=== PATIENT | female | born 1940 | race Caucasian/White ===

== ENCOUNTER → 2018-02-26 15:31 | Outpatient (CLI) | payer MEDICARE, SELFPAY ==
[2018-02-26 16:02] LABS: Add Manual Diff / Slide Review NO; Basophils Percent Auto 1.3 % (0-2); Eosinophils Percent Auto 1.8 % (2-4); Hemoglobin 13.5 g/dL (12.0-16.0); Mean Corpuscular HGB Conc 33.8 % (30-36); Mean Corpuscular Hemoglobin 30.2 PG (26-34); Mean Corpuscular Volume 89.4 fL (80-100); Monocytes Percent Auto 8.2 % (3-14); Neutrophils Absolute Auto 5100 /uL (3000-5900); Neutrophils Percent Auto 63.7 % (50-75); Platelet Count 200 X10^3/uL (150-400); Red Blood Cell Count 4.48 X10^6/uL (4.0-5.2); Red Cell Distribution Width 15.2 % (11.6-14.8); White Blood Cell Count 7.9 X10^3/uL (4.5-11.0)
[2018-02-26 16:19] LABS: Alanine Aminotransferase 17 IU/L (9-52); Albumin 4.2 g/dL (3.5-5.0); Albumin Globulin Ratio 1.4 (1.0-2.8); Alkaline Phosphatase 49 U/L (38-126); Aspartate Aminotransferase 19 IU/L (14-36); Bilirubin Total 0.5 mg/dL (0.2-1.3); Blood Urea Nitrogen 13 mg/dL (7-17); Calcium 9.4 mg/dL (8.4-10.2); Carbon Dioxide 29 mmol/L (22-32); Chloride 107 mmol/L (98-107); Estimated Glomerular Filt Rate 54.1 mL/min (>60); Glucose 78 mg/dL (80-110); HEMOLYSIS < 15 (0-50); Potassium 4.4 mmol/L (3.4-5.1); Sodium 146 mmol/L (137-145); Total Protein 7.2 g/dL (6.3-8.2)
== END ==
PROVIDERS: PCP Family Medicine; Visit Provider Nurse Practitioner Gerontology
DX: C50.912 Malignant neoplasm of unspecified site of left female breast (principal)
CPT/HCPCS: 36415; 80053; 85025

== ENCOUNTER → 2018-09-11 15:11 | Outpatient (CLI) | payer MEDICARE, SELFPAY | PROVIDERS: PCP Family Medicine; Visit Provider Family Medicine | DX: Z78.0 Asymptomatic menopausal state (principal); Z85.3 Personal history of malignant neoplasm of breast; Z82.62 Family history of osteoporosis; Z87.891 Personal history of nicotine dependence | CPT/HCPCS: 77080 ==

== ENCOUNTER → 2018-09-23 15:40 | Oncology outpatient (ONC) | payer MEDICARE, SELFPAY ==
--- NOTE | 2018-01-17 12:17 | PC.NURSE ---
Pt called for refill of her Tamoxifen 20mg PO QD. [facility] pharm [facility]. [employer] notified
[2018-02-28 13:33] VITALS: BP 127/66; PULSE 82; RESP 16; TEMP 37; O2SAT 96
--- NOTE | 2018-02-28 13:38 | ONC.PN ---
PN -Subjective Interval history: Chief Complaint 77-year-old female left breast ER positive MA positive HER2 negative cancer. 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 Her primary cancer measured 0.6 cm in greatest diameter. ER pos, MA pos, HER2 neg and Ki-67 8.45%. Patient was in [facility]. Per patient's recall that because it was an early stage and small size of her cancer, radiation and chemotherapy were not recommended. And since it October 10, 2015, patient has been on tamoxifen 20 mg once a day. Patient has tolerated the tamoxifen exceedingly well. Patient is aware the potential side effects of tamoxifen including endometrial carcinoma as well as the increased risk of blood clot. Patient presents here today for continued follow-up. Patient said that she always get a mammogram in June at [facility]. And the most recent mammogram was completely normal. - Patient Self-Reported Symptoms SR Constitution: Weight loss/gain (Patient reported weight gain.) SR Gastrointestinal issues: Poor or no appetite SR Neuro issues: Numbness or tingling, Difficulty balancing - Additional ROS All systems PM: reviewed and no additional remarkable complaints except as stated Home Medications and Allergies Home Medications Medication Instructions Recorded Confirmed Type multivitamin [Multiple Vitamins] 1 PO QDAY #0 09/07/16 History lorazepam 0.5 mg PO Q6HP PRN #60 tab 09/21/16 Rx naproxen sodium [Aleve] 220 mg PO PRN #0 10/24/16 History carvedilol 3.125 mg PO BID 02/28/18 02/28/18 History escitalopram oxalate 20 mg PO DAILY 02/28/18 02/28/18 History gabapentin 600 mg PO TID 02/28/18 02/28/18 History omeprazole magnesium [Prilosec OTC] 20 mg PO DAILY 02/28/18 02/28/18 History pravastatin 40 mg PO DAILY 02/28/18 02/28/18 History tamoxifen 20 mg PO DAILY 02/28/18 02/28/18 History Allergies Allergy/AdvReac Type Severity Reaction Status Date / Time No Known Allergies Allergy Uncoded 09/12/17 12:36 Exam Vital signs: Last Vital Signs Temp 98.6 F 02/28/18 13:33 Pulse 82 02/28/18 13:33 Resp 16 02/28/18 13:33 BP 127/66 02/28/18 13:33 Pulse Ox 96 02/28/18 13:33 Narrative: ECOG 1 General: Well-developed well-nourished not in any acute respiratory distress pleasant and cooperative. HEENT: Normocephalic atraumatic, extraocular muscle movement intact. Pupils are round equal and reactive to light and accommodations. Anicteric sclera. Neck: Supple, no palpable thyromegaly and no palpable lymph nodes. Respiratory: Clear to auscultation soft, no wheezes. Cardiovascular regular rate and rhythm, S1-S2 normal, no murmurs gallops or rubs. Abdomen: Soft nontender, bowel sounds normal, no palpable organomegaly. Lower extremities: No palpable pedal edema. Neurological exam: Patient is awake and alert and oriented x3, nonfocal on my examination Breast Exam: deferred. Assessment and Plan (1) Breast cancer I explained to the patient that for postmenopausal woman in addition to tamoxifen, there is another option which is aromatase inhibitor. However patient said that since she has been taking tamoxifen for such a long time and she is aware of the potential side effects including endometrial carcinoma as well as the blood clot, she would not like to change to aromatase inhibitor in fear of on anticipated side effects. I talked with her and I agree with and support her decision regarding continued use of tamoxifen as long as she is aware of the potential risks associated with use of the tamoxifen. Patient is not on aspirin. I recommend that she start taking aspirin 81 mg once a day on a daily basis. It may help prevent thromboembolism. Patient voiced understanding. I will schedule the patient to come back to see me in 6 months.
--- NOTE | 2018-02-28 13:43 | P.PNONC_ITS ---
PN -Subjective Interval history: Chief Complaint 77-year-old female left breast ER positive ID positive HER2 negative cancer. 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 Her primary cancer measured 0.6 cm in greatest diameter. ER pos, ID pos, HER2 neg and Ki-67 8.45%. Patient was in [facility]. Per patient's recall that because it was an early stage and small size of her cancer, radiation and chemotherapy were not recommended. And since it October 10, 2015, patient has been on tamoxifen 20 mg once a day. Patient has tolerated the tamoxifen exceedingly well. Patient is aware the potential side effects of tamoxifen including endometrial carcinoma as well as the increased risk of blood clot. Patient presents here today for continued follow-up. Patient said that she always get a mammogram in June at [place]. And the most recent mammogram was completely normal. - Patient Self-Reported Symptoms SR Constitution: Weight loss/gain (Patient reported weight gain.) SR Gastrointestinal issues: Poor or no appetite SR Neuro issues: Numbness or tingling, Difficulty balancing - Additional ROS All systems PM: reviewed and no additional remarkable complaints except as stated Home Medications and Allergies Home Medications Medication Instructions Recorded Confirmed Type multivitamin [Multiple Vitamins] 1 PO QDAY #0 09/07/16 History lorazepam 0.5 mg PO Q6HP PRN #60 tab 09/21/16 Rx naproxen sodium [Aleve] 220 mg PO PRN #0 10/24/16 History carvedilol 3.125 mg PO BID 02/28/18 02/28/18 History escitalopram oxalate 20 mg PO DAILY 02/28/18 02/28/18 History gabapentin 600 mg PO TID 02/28/18 02/28/18 History omeprazole magnesium [Prilosec OTC] 20 mg PO DAILY 02/28/18 02/28/18 History pravastatin 40 mg PO DAILY 02/28/18 02/28/18 History tamoxifen 20 mg PO DAILY 02/28/18 02/28/18 History Allergies Allergy/AdvReac Type Severity Reaction Status Date / Time No Known Allergies Allergy Uncoded 09/12/17 12:36 Exam Vital signs: Last Vital Signs Temp 98.6 F 02/28/18 13:33 Pulse 82 02/28/18 13:33 Resp 16 02/28/18 13:33 BP 127/66 02/28/18 13:33 Pulse Ox 96 02/28/18 13:33 Narrative: ECOG 1 General: Well-developed well-nourished not in any acute respiratory distress pleasant and cooperative. HEENT: Normocephalic atraumatic, extraocular muscle movement intact. Pupils are round equal and reactive to light and accommodations. Anicteric sclera. Neck: Supple, no palpable thyromegaly and no palpable lymph nodes. Respiratory: Clear to auscultation soft, no wheezes. Cardiovascular regular rate and rhythm, S1-S2 normal, no murmurs gallops or rubs. Abdomen: Soft nontender, bowel sounds normal, no palpable organomegaly. Lower extremities: No palpable pedal edema. Neurological exam: Patient is awake and alert and oriented x3, nonfocal on my examination Breast Exam: deferred. Assessment and Plan (1) Breast cancer I explained to the patient that for postmenopausal woman in addition to tamoxifen, there is another option which is aromatase inhibitor. However patient said that since she has been taking tamoxifen for such a long time and she is aware of the potential side effects including endometrial carcinoma as well as the blood clot, she would not like to change to aromatase inhibitor in fear of on anticipated side effects. I talked with her and I agree with and support her decision regarding continued use of tamoxifen as long as she is aware of the potential risks associated with use of the tamoxifen. Patient is not on aspirin. I recommend that she start taking aspirin 81 mg once a day on a daily basis. It may help prevent thromboembolism. Patient voiced understanding. I will schedule the patient to come back to see me in 6 months.
--- NOTE | 2018-04-08 10:09 | PC.NURSE ---
Tamoxifen refill called into [facility] in [place] for 20 mg po daily #90 tabs. Phone number [phone].
--- NOTE | 2018-07-22 13:31 | PC.NURSE ---
Authorized refill on pts Tamoxifen w/ refill. Called to [facility] in [place], [place]. Provider visit in September
[2018-09-17 15:12] LABS: Add Manual Diff / Slide Review NO; Basophils Absolute Auto 100 /uL (0-100); Basophils Percent Auto 0.9 % (0-2); Eosinophils Absolute Auto 100 /uL (0-450); Eosinophils Percent Auto 1.1 % (2-4); Hematocrit 44.1 % (36-46); Lymphocytes Absolute Auto 1800 /uL (1100-4500); Lymphocytes Percent Auto 20.5 % (25-40); Mean Corpuscular HGB Conc 31.8 % (30-36); Mean Corpuscular Hemoglobin 28.4 PG (26-34); Mean Corpuscular Volume 89.2 fL (80-100); Monocytes Absolute Auto 600 /uL (0-900); Monocytes Percent Auto 6.6 % (3-14); Neutrophils Absolute Auto 6100 /uL (1500-7000); Neutrophils Percent Auto 70.9 % (50-75); Platelet Count 226 X10^3/uL (150-400); Red Blood Cell Count 4.94 X10^6/uL (4.0-5.2); Red Cell Distribution Width 15.9 % (11.6-14.8); White Blood Cell Count 8.6 X10^3/uL (4.5-11.0)
[2018-09-17 15:38] LABS: Alanine Aminotransferase 19 IU/L (9-52); Albumin 4.3 g/dL (3.5-5.0); Albumin Globulin Ratio 1.4 (1.0-2.8); Alkaline Phosphatase 57 U/L (38-126); Aspartate Aminotransferase 19 IU/L (14-36); BUN Creatinine Ratio 16.4 (6-22); Bilirubin Total 0.5 mg/dL (0.2-1.3); Blood Urea Nitrogen 18 mg/dL (7-17); Carbon Dioxide 27 mmol/L (22-32); Chloride 102 mmol/L (98-107); Estimated Glomerular Filt Rate 48.4 mL/min (>60); Glucose 102 mg/dL (80-110); HEMOLYSIS < 15 (0-50); Potassium 4.6 mmol/L (3.4-5.1); Sodium 140 mmol/L (137-145); Total Protein 7.3 g/dL (6.3-8.2)
--- NOTE | 2018-09-23 16:46 | ONC.PN ---
PN -Subjective Interval history: Tia is a 77-year-old female left breast ER positive NJ positive HER2 negative cancer. She is here for scheduled follow up visit. Clinically, patient has been doing well. Patient reported that occasionally she noticed lower back pain. However patient said that when she moves around, the pain gets better. Patient also underwent and bone density scan recently and per patient it was normal. Oncological History: She was diagnosed with left-sided stage I (T1 N0) invasive ductal carcinoma and underwent partial mastectomy with sentinel lymph node dissection on 08/23/2015. Her primary cancer measured 0.6 cm in greatest diameter, and was ER pos, NJ pos, HER2 neg and Ki-67 8.45%. Patient was in [facility] at the time, and per patient's recall, due to early stage and small size of her cancer, radiation and chemotherapy were not recommended. Starting from 10/10/2015, the patient has been on tamoxifen 20 mg once a day. Patient has tolerated the tamoxifen exceedingly well. Patient is aware the potential side effects of tamoxifen including endometrial carcinoma as well as the increased risk of blood clot. Patient had a mammogram in June at [place], and was normal. - Patient Self-Reported Symptoms SR Constitution: Weight loss/gain (Patient reported weight gain.) SR Gastrointestinal issues: Poor or no appetite SR Neuro issues: Numbness or tingling, Difficulty balancing - Additional ROS All systems PM: reviewed and no additional remarkable complaints except as stated Home Medications and Allergies Home Medications Medication Instructions Recorded Confirmed Type multivitamin [Multiple Vitamins] 1 PO QDAY #0 09/07/16 History naproxen sodium [Aleve] 220 mg PO PRN #0 10/24/16 History carvedilol 3.125 mg PO BID 02/28/18 02/28/18 History escitalopram oxalate 20 mg PO DAILY 02/28/18 02/28/18 History gabapentin 600 mg PO TID 02/28/18 02/28/18 History omeprazole magnesium [Prilosec OTC] 20 mg PO DAILY 02/28/18 02/28/18 History pravastatin 40 mg PO DAILY 02/28/18 02/28/18 History aspirin 81 mg PO DAILY 09/23/18 09/23/18 History lorazepam 0.5 mg PO Q6HP PRN #60 tab 09/23/18 Rx tamoxifen 20 mg PO DAILY #90 tab 09/23/18 Rx Allergies Allergy/AdvReac Type Severity Reaction Status Date / Time No Known Allergies Allergy Uncoded 09/12/17 12:36 Exam Vital signs: Last Vital Signs Temp 97.2 F L 09/23/18 16:48 Pulse 63 09/23/18 16:48 Resp 18 09/23/18 16:48 BP 136/65 09/23/18 16:48 Pulse Ox 99 09/23/18 16:48 Narrative: ECOG 1 General: WDWN, NAD, pleasant and cooperative. HEENT: NCAT, EOMI, PERLLA, anicteric. Neck: Supple, no palpable thyromegaly and no palpable lymph nodes. Respiratory: Clear to auscultation soft, no wheezes. Cardiovascular: RRR, S1/S2 normal, no murmurs gallops or rubs. Abdomen: Soft nontender, bowel sounds normal, no palpable organomegaly. Lower extremities: No palpable pedal edema. Neurological: AOx3, nonfocal on my examination Breast Exam: deferred. Results - Labs Laboratory Last Values WBC 8.6 X10^3/uL (4.5-11.0) 09/17/18 13:57 RBC 4.94 X10^6/uL (4.0-5.2) 09/17/18 13:57 Hgb 14.0 g/dL (12.0-16.0) 09/17/18 13:57 Hct 44.1 % (36-46) 09/17/18 13:57 MCV 89.2 fL (80-100) 09/17/18 13:57 MCH 28.4 PG (26-34) 09/17/18 13:57 MCHC 31.8 % (30-36) 09/17/18 13:57 RDW 15.9 % (11.6-14.8) H 09/17/18 13:57 Plt Count 226 X10^3/uL (150-400) 09/17/18 13:57 Neut % (Auto) 70.9 % (50-75) 09/17/18 13:57 Lymph % (Auto) 20.5 % (25-40) L 09/17/18 13:57 Teller % (Auto) 6.6 % (3-14) 09/17/18 13:57 Eos % (Auto) 1.1 % (2-4) L 09/17/18 13:57 Baso % (Auto) 0.9 % (0-2) 09/17/18 13:57 Neut # (Auto) 6100 /uL (6741-5804) 09/17/18 13:57 Lymph # (Auto) 1800 /uL (5122-8782) 09/17/18 13:57 Teller # (Auto) 600 /uL (0-900) 09/17/18 13:57 Eos # (Auto) 100 /uL (0-450) 09/17/18 13:57 Baso # (Auto) 100 /uL (0-100) 09/17/18 13:57 Sodium 140 mmol/L (137-145) 09/17/18 13:57 Potassium 4.6 mmol/L (3.4-5.1) 09/17/18 13:57 Chloride 102 mmol/L (98-107) 09/17/18 13:57 Carbon Dioxide 27 mmol/L (22-32) 09/17/18 13:57 BUN 18 mg/dL (7-17) H 09/17/18 13:57 Creatinine 1.10 mg/dL (0.52-1.04) H 09/17/18 13:57 Estimated GFR 48.4 mL/min (>60) L 09/17/18 13:57 BUN/Creatinine Ratio 16.4 (6-22) 09/17/18 13:57 Glucose 102 mg/dL (80-110) 09/17/18 13:57 Calcium 10.0 mg/dL (8.4-10.2) 09/17/18 13:57 Total Bilirubin 0.5 mg/dL (0.2-1.3) 09/17/18 13:57 AST 19 IU/L (14-36) 09/17/18 13:57 ALT 19 IU/L (9-52) 09/17/18 13:57 Alkaline Phosphatase 57 U/L (38-126) 09/17/18 13:57 Total Protein 7.3 g/dL (6.3-8.2) 09/17/18 13:57 Albumin 4.3 g/dL (3.5-5.0) 09/17/18 13:57 Globulin 3.0 g/dL (1.7-4.1) 09/17/18 13:57 Albumin/Globulin Ratio 1.4 (1.0-2.8) 09/17/18 13:57 Assessment and Plan (1) Breast cancer Assessment: Tia was diagnosed with left-sided stage I (T1 N0) invasive ductal carcinoma and underwent partial mastectomy with sentinel lymph node dissection on 08/23/2015. Her primary cancer measured 0.6 cm in greatest diameter, and was ER pos, NJ pos, HER2 neg and Ki-67 8.45%. Patient was in [facility] at the time, and per patient's recall, due to early stage and small size of her cancer, radiation and chemotherapy were not recommended. Starting from 10/10/2015, the patient has been on tamoxifen 20 mg once a day. Plan: 1. Continue Tamoxifen 20 mg daily 2. Continue ASA 81 mg daily 3. RTC in 6 months for follow up visit, CBC, CMP
[2018-09-23 16:48] VITALS: BP 136/65; PULSE 63; RESP 18; TEMP 36.2; O2SAT 99
--- NOTE | 2018-09-23 16:54 | P.PNONC_ITS ---
PN -Subjective Interval history: Tia is a 77-year-old female left breast ER positive ND positive HER2 negative cancer. She is here for scheduled follow up visit. Clinically, patient has been doing well. Patient reported that occasionally she noticed lower back pain. However patient said that when she moves around, the pain gets better. Pat ient also underwent and bone density scan recently and per patient it was normal. Oncological History: She was diagnosed with left-sided stage I (T1 N0) invasive ductal carcinoma and underwent partial mastectomy with sentinel lymph node dissection on 08/23/2015. Her primary cancer measured 0.6 cm in greatest diameter, and was ER pos, ND pos, HER2 neg and Ki-67 8.45%. Patient was in [facility] at the time, and per patient's recall, due to early stage and small size of her cancer, radiation and chemotherapy were not recommended. Starting from 10/10/2015, the patient has been on tamoxifen 20 mg once a day. Patient has tolerated the tamoxifen exceedingly well. Patient is aware the potential side effects of tamoxifen including endometrial carcinoma as well as the increased risk of blood clot. Patient had a mammogram in June at [place], and was normal. - Patient Self-Reported Symptoms SR Constitution: Weight loss/gain (Patient reported weight gain.) SR Gastrointestinal issues: Poor or no appetite SR Neuro issues: Numbness or tingling, Difficulty balancing - Additional ROS All systems PM: reviewed and no additional remarkable complaints except as stated Home Medications and Allergies Home Medications Medication Instructions Recorded Confirmed Type multivitamin [Multiple Vitamins] 1 PO QDAY #0 09/07/16 History naproxen sodium [Aleve] 220 mg PO PRN #0 10/24/16 History carvedilol 3.125 mg PO BID 02/28/18 02/28/18 History escitalopram oxalate 20 mg PO DAILY 02/28/18 02/28/18 History gabapentin 600 mg PO TID 02/28/18 02/28/18 History omeprazole magnesium [Prilosec OTC] 20 mg PO DAILY 02/28/18 02/28/18 History pravastatin 40 mg PO DAILY 02/28/18 02/28/18 History aspirin 81 mg PO DAILY 09/23/18 09/23/18 History lorazepam 0.5 mg PO Q6HP PRN #60 tab 09/23/18 Rx tamoxifen 20 mg PO DAILY #90 tab 09/23/18 Rx Allergies Allergy/AdvReac Type Severity Reaction Status Date / Time No Known Allergies Allergy Uncoded 09/12/17 12:36 Exam Vital signs: Last Vital Signs Temp 97.2 F L 09/23/18 16:48 Pulse 63 09/23/18 16:48 Resp 18 09/23/18 16:48 BP 136/65 09/23/18 16:48 Pulse Ox 99 09/23/18 16:48 Narrative: ECOG 1 General: WDWN, NAD, pleasant and cooperative. HEENT: NCAT, EOMI, PERLLA, anicteric. Neck: Supple, no palpable thyromegaly and no palpable lymph nodes. Respiratory: Clear to auscultation soft, no wheezes. Cardiovascular: RRR, S1/S2 normal, no murmurs gallops or rubs. Abdomen: Soft nontender, bowel sounds normal, no palpable organomegaly. Lower extremities: No palpable pedal edema. Neurological: AOx3, nonfocal on my examination Breast Exam: deferred. Results - Labs Laboratory Last Values WBC 8.6 X10^3/uL (4.5-11.0) 09/17/18 13:57 RBC 4.94 X10^6/uL (4.0-5.2) 09/17/18 13:57 Hgb 14.0 g/dL (12.0-16.0) 09/17/18 13:57 Hct 44.1 % (36-46) 09/17/18 13:57 MCV 89.2 fL (80-100) 09/17/18 13:57 MCH 28.4 PG (26-34) 09/17/18 13:57 MCHC 31.8 % (30-36) 09/17/18 13:57 RDW 15.9 % (11.6-14.8) H 09/17/18 13:57 Plt Count 226 X10^3/uL (150-400) 09/17/18 13:57 Neut % (Auto) 70.9 % (50-75) 09/17/18 13:57 Lymph % (Auto) 20.5 % (25-40) L 09/17/18 13:57 Mcintosh % (Auto) 6.6 % (3-14) 09/17/18 13:57 Eos % (Auto) 1.1 % (2-4) L 09/17/18 13:57 Baso % (Auto) 0.9 % (0-2) 09/17/18 13:57 Neut # (Auto) 6100 /uL (6525-2737) 09/17/18 13:57 Lymph # (Auto) 1800 /uL (9674-3708) 09/17/18 13:57 Mcintosh # (Auto) 600 /uL (0-900) 09/17/18 13:57 Eos # (Auto) 100 /uL (0-450) 09/17/18 13:57 Baso # (Auto) 100 /uL (0-100) 09/17/18 13:57 Sodium 140 mmol/L (137-145) 09/17/18 13:57 Potassium 4.6 mmol/L (3.4-5.1) 09/17/18 13:57 Chloride 102 mmol/L (98-107) 09/17/18 13:57 Carbon Dioxide 27 mmol/L (22-32) 09/17/18 13:57 BUN 18 mg/dL (7-17) H 09/17/18 13:57 Creatinine 1.10 mg/dL (0.52-1.04) H 09/17/18 13:57 Estimated GFR 48.4 mL/min (>60) L 09/17/18 13:57 BUN/Creatinine Ratio 16.4 (6-22) 09/17/18 13:57 Glucose 102 mg/dL (80-110) 09/17/18 13:57 Calcium 10.0 mg/dL (8.4-10.2) 09/17/18 13:57 Total Bilirubin 0.5 mg/dL (0.2-1.3) 09/17/18 13:57 AST 19 IU/L (14-36) 09/17/18 13:57 ALT 19 IU/L (9-52) 09/17/18 13:57 Alkaline Phosphatase 57 U/L (38-126) 09/17/18 13:57 Total Protein 7.3 g/dL (6.3-8.2) 09/17/18 13:57 Albumin 4.3 g/dL (3.5-5.0) 09/17/18 13:57 Globulin 3.0 g/dL (1.7-4.1) 09/17/18 13:57 Albumin/Globulin Ratio 1.4 (1.0-2.8) 09/17/18 13:57 Assessment and Plan (1) Breast cancer Assessment: Tia was diagnosed with left-sided stage I (T1 N0) invasive d uctal carcinoma and underwent partial mastectomy with sentinel lymph node dissection on 08/23/2015. Her primary cancer measured 0.6 cm in greatest diameter, and was ER pos, ND pos, HER2 neg and Ki-67 8.45%. Patient was in [facility] at the time, and per patient's recall, due to early stage and small size of her cancer, radiation and chemotherapy were not recommended. Starting from 10/10/2015, the patient has been on tamoxifen 20 mg once a day. Plan: 1. Continue Tamoxifen 20 mg daily 2. Continue ASA 81 mg daily 3. RTC in 6 months for follow up visit, CBC, CMP
== END ==
PROVIDERS: Family Provider Family Medicine; PCP Family Medicine; Visit Provider Internal Medicine Hematology & Oncology
DX: C50.912 Malignant neoplasm of unspecified site of left female breast (principal); Z17.0 Estrogen receptor positive status [ER+]; Z79.810 Long term (current) use of selective estrogen receptor modulators (SERMs)
CPT/HCPCS: 36415; 80053; 85025; 99214; 99215

== ENCOUNTER → 2018-12-25 14:10 | Outpatient (CLI) | payer MEDICARE, SELFPAY ==
--- NOTE | 2018-12-25 14:27 | DI.RAD.S_ITS ---
PROCEDURE: XR CHEST 2V INDICATIONS: Bronchospasm TECHNIQUE: 2 views of the chest were acquired. COMPARISON: None. FINDINGS: Surgical changes and devices: Right humerus plate and screw fixation. Lungs and pleura: Prominent pulmonary vasculature most evident in the right hilar region. Mild hazy opacity in the right lung. Small right pleural effusion. No significant left pleural effusion. No pneumothorax. Mediastinum: Mediastinal contours are within normal limits. Heart size is normal. Bones and chest wall: No suspicious bony abnormalities. There is diffuse osteopenia. Soft tissues appear unremarkable. IMPRESSION: 1. Prominent pulmonary vasculature and hazy opacity in the right lung. This may be due to pulmonary edema. 2. Small right pleural effusion. Dictated by: Palomo Fox M.D. on 12/25/2018 at 16:50 Approved by: Palomo Fox M.D. on 12/25/2018 at 16:53
== END ==
PROVIDERS: Visit Provider Physician Assistant
DX: J98.01 Acute bronchospasm (principal); R05 Cough; J40 Bronchitis, not specified as acute or chronic; J90 Pleural effusion, not elsewhere classified
CPT/HCPCS: 71046

== ENCOUNTER 2019-01-01 13:23 | Inpatient (IN) | payer MEDICARE, SELFPAY ==
[2019-01-01] VITALS (10 sets, daily range): BP systolic 131–157; BP diastolic 67–75; PULSE 81–110; RESP 17–21; TEMP 36.6–37.2; O2SAT 86–97; BMI 26.5
--- NOTE | 2019-01-01 13:32 | ED.SOB ---
HPI - SOB/Dyspnea General Chief Complaint: Shortness of Breath/Dyspnea Stated Complaint: LBB Time Seen by Provider: 01/01/19 13:31 Source: patient and EMS Mode of arrival: EMS Limitations: no limitations History of Present Illness This is a 78-year-old female comes to the emergency department. She initially contacted EMS for a back pain and spasm. Patient states she has had back pain for several weeks. She states that it has been exacerbated by coughing. She thought that maybe it started after seeing a chiropractor. EMS noted that her oxygenation was in the low 90s when she was on room air they also noted that she was tachycardic. And that she had a left bundle branch block on her EKG. It is unclear if this is new or old. Patient denies any fevers. She states she has had a cough for several weeks. She has been steroids as well as inhalers and told she has bronchitis. Patient denies any tobacco use. She states she does feel short of breath. She denies any chest pressure or pain recently. She states that she has not had any other GI or new urinary symptoms other than incontinence when she coughs. No new weakness or numbness in her extremities. Patient saw her primary care/walk-in clinic who placed her on these medications. She also takes medication for blood pressure as well as dyslipidemia. She is on tamoxifen for breast cancer and was cleared in 2014. States she had a lumpectomy, denies any other surgeries at this time. Denies any allergies to medications. Denies any tobacco use since 1979. States that she used to drink heavily and quit about 6 years ago, denies any illicit or marijuana. Related Data Home Medications Medication Instructions Recorded Confirmed albuterol sulfate [ProAir HFA] 2 puff INHALATION Q4H PRN 01/01/19 01/01/19 aspirin 81 mg PO DAILY 01/01/19 01/01/19 azithromycin 250 mg PO DAILY 01/01/19 01/01/19 benzonatate 100 mg PO BID PRN 01/01/19 01/01/19 carvedilol 3.125 mg PO BID 01/01/19 01/01/19 escitalopram oxalate 20 mg PO DAILY 01/01/19 01/01/19 gabapentin 600 mg PO TID 01/01/19 01/01/19 hydrocodone-acetaminophen 1 tab PO Q4-6H PRN 01/01/19 01/01/19 multivitamin with minerals 1 tab PO DAILY 01/01/19 01/01/19 naproxen 500 mg PO BID 01/01/19 01/01/19 naproxen sodium [Aleve] 220 - 440 mg PO DAILY PRN 01/01/19 01/01/19 omeprazole magnesium [Prilosec OTC] 20 mg PO DAILY 01/01/19 01/01/19 pravastatin 40 mg PO BEDTIME 01/01/19 01/01/19 tamoxifen 20 mg PO DAILY 01/01/19 01/01/19 Allergies Allergy/AdvReac Type Severity Reaction Status Date / Time No Known Drug Allergies Allergy Verified 01/01/19 13:52 Review of Systems Review of Systems ROS Unobtainable: All systems reviewed & are unremarkable except as noted in HPI and below Constitutional Denies chills, Denies excessive sweating, Denies fever(s), Denies lethargy and Denies weakness Cardiovascular Denies chest pain, Denies diaphoresis, Denies syncope, Denies edema, Denies irregular heart rhythm, Denies lightheadedness, Denies palpitations, Reports dyspnea, Reports dyspnea on exertion and Denies orthopnea Respiratory Reports change in phlegm color (Phlegm improved), Reports chest congestion, Reports cough, Denies hemoptysis, Denies excessive phlegm production, Denies pain on inspiration, Reports pain with cough (Pain is in lower back), Reports dyspnea, Reports dyspnea on exertion, Denies stridor and Reports wheezing Gastrointestinal Gastrointestinal: Denies abdominal pain, Denies change in bowel habits, Denies diarrhea, Denies nausea and Denies vomiting Genitourinary Denies hematuria, Denies urinary frequency, Denies dysuria, Denies flank pain, Reports urinary incontinence (With cough) and Denies urinary urgency Musculoskeletal Reports back pain, Denies muscle weakness and Denies numbness Neurologic Denies syncope, Denies numbness and Denies weakness Endocrine Denies excessive sweating and Denies palpitations Allergic/Immunologic Reports wheezing [facility] Medical History (Updated 01/01/19 @ 17:14 by Lita Heart DO) Dyslipidemia (Acute) Breast cancer (Chronic) Hypertension (Chronic) Surgical History (Updated 01/01/19 @ 13:36 by Lita Heart DO) H/O lumpectomy (Chronic) Social History (Updated 01/01/19 @ 13:37 by Lita Heart DO) Smoking Status: Former smoker alcohol intake: former substance use type: does not use Social History (Updated 01/01/19 @ 13:37 by Lita Heart DO) Smoking Status: Former smoker alcohol intake: former substance use type: does not use Exam Narrative Exam Narrative: GENERAL: Alert and oriented x three, elderly appearing female in mild distress. Patient O2 drops to 89% while off O2 and being transferred on the bed. HEENT: Head normocephalic, atraumatic, EOMI, pupils reactive, face symmetric, moist mucous membranes NECK: Supple, full range of motion CARDIOVASCULAR: Regular rate and rhythm without murmurs, rubs or gallops. RESPIRATORY: Breath sounds equal bilaterally, no wheezes, no rhonchi. Patient has some slight crackles bilaterally. No tachypnea or accessory muscle use. Patient speaks in full sentences. ABDOMEN: Soft, nontender. Normoactive bowel sounds all 4 quadrants. No guarding or rebound, rigidity, no mass : No CVA tenderness BACK: No cervical, thoracic or lumbar vertebral point tenderness. Patient has decreased range of motion with flexion/extension of back. Rectal exam is deferred. Muscle strength is 5/5 in lower extremities. Dorsalis pedis and tibialis pulses are 2+ and lower extremities. Sensation is intact in the lower extremities. EXTREMITIES: Normal range of motion, no clubbing or edema. Neurovascularly intact NEUROLOGICAL: Cranial nerves II through XII grossly intact. Moving all extremities SKIN: Warm, dry, no petechiae, no rashes or lesions. Initial Vital Signs Initial Vital Signs: Vital Signs Pulse Rate 103 H 01/01/19 13:30 Blood Pressure 131/75 01/01/19 13:30 Pulse Oximetry 96 01/01/19 13:30 Course Orders Ordered: ED Orders 01/01/19 13:03 B Type Natriuretic Peptide Stat Complete Blood Count AUTO DIFF Stat Comprehensive Metabolic Panel Stat Magnesium Stat Procalcitonin Stat Troponin & CK Cardiac Panel Stat 01/01/19 13:22 EKG-12 Lead Routine 01/01/19 13:31 Consult to Respiratory Therapy Evaluate & Treat 01/01/19 13:32 XR chest 1V Stat 01/01/19 13:48 Blood Culture Stat D Dimer Stat Lactate (Lactic Acid) Stat Partial Thromboplastin Time Stat Prothrombin Time INR Stat 01/01/19 14:19 CT angio chest PE protocol Stat Discontinued Medications Methylprednisolone (Solu-Medrol 125 Mg Vial) 125 mg IV NOW ONE Stop: 01/01/19 13:32 Last Admin: 01/01/19 13:56 Dose: 125 mg Morphine Sulfate (Morphine) 4 mg IV NOW ONE Stop: 01/01/19 13:32 Last Admin: 01/01/19 13:55 Dose: 4 mg Vital Signs - 8 hr 01/01/19 13:30 01/01/19 13:31 01/01/19 15:27 Temperature 98.9 F Pulse Rate 103 H 110 H Respiratory Rate 21 Blood Pressure 137/74 Blood Pressure [Right Arm] 131/75 Pulse Oximetry 96 89 L 86 L 01/01/19 15:28 01/01/19 15:30 01/01/19 16:30 Temperature Pulse Rate 89 90 Respiratory Rate Blood Pressure Blood Pressure [Right Arm] 143/71 H 157/75 H Pulse Oximetry 94 95 96 MDM - SOB/Dyspnea Lab Data Attestation: I reviewed the patient's lab results. Result diagrams: 01/01/19 13:03 01/01/19 13:03 Lab Results 01/01/19 01/01/19 01/01/19 Range/Units 13:03 13:03 13:03 WBC 18.3 H (4.5-11.0) X10^3/uL RBC 4.62 (4.0-5.2) X10^6/uL Hgb 13.5 (12.0-16.0) g/dL Hct 41.5 (36-46) % MCV 89.8 (80-100) fL MCH 29.1 (26-34) PG MCHC 32.4 (30-36) % RDW 17.0 H (11.6-14.8) % Plt Count 119 L (150-400) X10^3/uL Neut % (Auto) 83.0 H (50-75) % Lymph % (Auto) 10.1 L (25-40) % Door % (Auto) 5.4 (3-14) % Eos % (Auto) 0.6 L (2-4) % Baso % (Auto) 0.9 (0-2) % Neut # (Auto) 01233 H (5926-7008) /uL Lymph # (Auto) 1800 (2388-2098) /uL Door # (Auto) 1000 H (0-900) /uL Eos # (Auto) 100 (0-450) /uL Baso # (Auto) 200 H (0-100) /uL PT (10.1-12.7) SECONDS INR (0.9-1.3) APTT (26.4-36.2) SECONDS D-Dimer (<230) ng/mL Sodium (137-145) mmol/L Potassium (3.4-5.1) mmol/L Chloride (98-107) mmol/L Carbon Dioxide (22-32) mmol/L BUN (7-17) mg/dL Creatinine (0.52-1.04) mg/dL Estimated GFR (>60) mL/min BUN/Creatinine Ratio (6-22) Glucose (80-110) mg/dL Lactate (0.7-2.1) mmol/L Calcium (8.4-10.2) mg/dL Magnesium 1.9 (1.6-2.3) mg/dL Total Bilirubin (0.2-1.3) mg/dL AST (14-36) IU/L ALT (9-52) IU/L Alkaline Phosphatase (38-126) U/L Total Creatine Kinase 28 L (30-135) U/L CK-MB (CK-2) TNP CK-MB (CK-2) Rel Index TNP Troponin I 0.019 (0.01-0.034) ng/mL B-Natriuretic Peptide < 100 (<100) Total Protein (6.3-8.2) g/dL Albumin (3.5-5.0) g/dL Globulin (1.7-4.1) g/dL Albumin/Globulin Ratio (1.0-2.8) Procalcitonin 0.17 (<0.5) ng/mL 01/01/19 01/01/19 01/01/19 Range/Units 13:03 13:48 13:48 WBC (4.5-11.0) X10^3/uL RBC (4.0-5.2) X10^6/uL Hgb (12.0-16.0) g/dL Hct (36-46) % MCV (80-100) fL MCH (26-34) PG MCHC (30-36) % RDW (11.6-14.8) % Plt Count (150-400) X10^3/uL Neut % (Auto) (50-75) % Lymph % (Auto) (25-40) % Door % (Auto) (3-14) % Eos % (Auto) (2-4) % Baso % (Auto) (0-2) % Neut # (Auto) (6736-7138) /uL Lymph # (Auto) (3941-6327) /uL Door # (Auto) (0-900) /uL Eos # (Auto) (0-450) /uL Baso # (Auto) (0-100) /uL PT 13.9 H (10.1-12.7) SECONDS INR 1.2 (0.9-1.3) APTT 28 (26.4-36.2) SECONDS D-Dimer 6918 H (<230) ng/mL Sodium 138 (137-145) mmol/L Potassium 4.4 (3.4-5.1) mmol/L Chloride 97 L (98-107) mmol/L Carbon Dioxide 28 (22-32) mmol/L BUN 25 H (7-17) mg/dL Creatinine 0.90 (0.52-1.04) mg/dL Estimated GFR > 60.0 (>60) mL/min BUN/Creatinine Ratio 27.8 H (6-22) Glucose 121 H (80-110) mg/dL Lactate 1.3 (0.7-2.1) mmol/L Calcium 10.1 (8.4-10.2) mg/dL Magnesium (1.6-2.3) mg/dL Total Bilirubin 1.2 (0.2-1.3) mg/dL AST 67 H (14-36) IU/L ALT 17 (9-52) IU/L Alkaline Phosphatase 98 (38-126) U/L Total Creatine Kinase (30-135) U/L CK-MB (CK-2) CK-MB (CK-2) Rel Index Troponin I (0.01-0.034) ng/mL B-Natriuretic Peptide (<100) Total Protein 7.0 (6.3-8.2) g/dL Albumin 3.9 (3.5-5.0) g/dL Globulin 3.1 (1.7-4.1) g/dL Albumin/Globulin Ratio 1.3 (1.0-2.8) Procalcitonin (<0.5) ng/mL 01/01/19 Range/Units 14:47 WBC (4.5-11.0) X10^3/uL RBC (4.0-5.2) X10^6/uL Hgb (12.0-16.0) g/dL Hct (36-46) % MCV (80-100) fL MCH (26-34) PG MCHC (30-36) % RDW (11.6-14.8) % Plt Count (150-400) X10^3/uL Neut % (Auto) (50-75) % Lymph % (Auto) (25-40) % Door % (Auto) (3-14) % Eos % (Auto) (2-4) % Baso % (Auto) (0-2) % Neut # (Auto) (8455-5315) /uL Lymph # (Auto) (8479-0012) /uL Door # (Auto) (0-900) /uL Eos # (Auto) (0-450) /uL Baso # (Auto) (0-100) /uL PT (10.1-12.7) SECONDS INR (0.9-1.3) APTT (26.4-36.2) SECONDS D-Dimer (<230) ng/mL Sodium (137-145) mmol/L Potassium (3.4-5.1) mmol/L Chloride (98-107) mmol/L Carbon Dioxide (22-32) mmol/L BUN (7-17) mg/dL Creatinine (0.52-1.04) mg/dL Estimated GFR (>60) mL/min BUN/Creatinine Ratio (6-22) Glucose (80-110) mg/dL Lactate Cancelled (0.7-2.1) mmol/L Calcium (8.4-10.2) mg/dL Magnesium (1.6-2.3) mg/dL Total Bilirubin (0.2-1.3) mg/dL AST (14-36) IU/L ALT (9-52) IU/L Alkaline Phosphatase (38-126) U/L Total Creatine Kinase (30-135) U/L CK-MB (CK-2) CK-MB (CK-2) Rel Index Troponin I (0.01-0.034) ng/mL B-Natriuretic Peptide (<100) Total Protein (6.3-8.2) g/dL Albumin (3.5-5.0) g/dL Globulin (1.7-4.1) g/dL Albumin/Globulin Ratio (1.0-2.8) Procalcitonin (<0.5) ng/mL Imaging Data Chest x-ray: Radiologist's impression: [place] [address] XRay Report Signed Patient: Andrew CastroR#: [id number] : 3Acct:[id number] Age/Sex: 78 / FDate of Service: 01/01/19 Loc: ED Accession Number: [id number] Procedure: XR chest 1V Ordering Provider: Lita Heart D.O. PROCEDURE: XR CHEST 1V INDICATIONS: sob, several weeks, low O2 TECHNIQUE: One view of the chest was acquired. COMPARISON: None. FINDINGS: Surgical changes and devices: The patient the right diaphragm is present. There is a transient or shaped area of prominent consolidation identified within the right suprahilar region. There may be a trace right-sided pleural effusion. The aeration of the left lung is within normal limits. No pneumothorax is evident. Lungs and pleura: Lungs are clear. No pleural effusions or pneumothorax. Mediastinum: Mediastinal contours appear normal. Heart size is normal. There is aortic atherosclerosis. Bones and chest wall: No suspicious bony lesions. Overlying soft tissues appear unremarkable. IMPRESSION: Probable right upper lobe collapse. Chest CT with contrast is recommended for further evaluation. Dictated by: Jhon Ramirez M.D. on 01/01/2019 at 13:07 Approved by: Jhon Ramirez M.D. on 01/01/2019 at 13:09 CT scan - chest: Radiologist's impression: [place] [address] CT Scan Report Signed Patient: Danitza Castro#: [id number] : 3Acct:[id number] Age/Sex: 78 / FDate of Service: 01/01/19 Loc: ED Accession Number: [id number] Procedure: CT angio chest PE protocol Ordering Provider: Lita Heart D.O. PROCEDURE: CT ANGIO CHEST PE PROTOCOL INDICATIONS: right upper lobe opacification, infection vs. other TECHNIQUE: After the administration of intravenous contrast, 2 mm thick sections acquired from the pulmonary apices to the posterior costophrenic angles. 3-dimensional maximum intensity projection (MIP) coronal and sagittal reformats were then acquired through the thorax. For radiation dose reduction, the following was used: automated exposure control, adjustment of mA and/or kV according to patient size. COMPARISON: None. FINDINGS: Image quality: Excellent. Pulmonary arteries: Pulmonary arteries are normal in size, and demonstrate no intraluminal filling defects to suggest central pulmonary embolism. Lungs and pleura: There is a moderate size right pleural effusion with near complete atelectasis of right lower lobe. Atelectasis involving medial portion of right upper lobe is seen. Central and left peripheral airways are patent. Significant narrowing of distal right upper lobe apical and posterior segment bronchi are seen. Mediastinum: Heart size is mildly enlarged, with small to moderate-sized pericardial effusion measures up to 11 mm in thickness adjacent to left ventricle. Prominent soft tissue density involving mediastinum and right hilar region are seen concerning for right hilar mass and mediastinal lymphadenopathy, and measures up to 1.8 cm in short axis diameter in the subcarinal space. Thoracic aorta is normal in caliber and enhancement. Esophagus is normal in caliber, with a small hiatal hernia. Bones and chest wall: Moderate kyphosis is seen. Degenerative disc disease throughout thoracic spine is noted. No gross acute compression fracture. No definite lytic or sclerotic bony lesion. Thyroid gland is within normal limits. No axillary or supraclavicular adenopathy. Abdomen: No gross abnormality is seen in visualized portion of liver, and spleen. There is suggestion of a left adrenal nodule measures 1.6 x 2.8 cm in size. Distended gallbladder is seen, no discrete gallbladder wall abnormality. IMPRESSION: 1. No evidence of pulmonary emboli. No thoracic aortic aneurysm or dissection. 2. Collapse of right upper lobe apical and posterior segment. Moderate right-sided pleural effusion with near complete atelectasis of right lower lobe. Dependent atelectasis in posterior aspect of right middle and lower lobe is seen. Mild left basilar atelectasis. 3. Left sided airway and central airway is patent. There is suggestive of a right hilar mass with mass effect on adjacent right upper lobe bronchi. 4. Mediastinal lymphadenopathy as above. 5. Mild cardiomegaly, small to moderate pericardial effusion as above. 6. Left adrenal nodule measures 1.8 x 2.8 cm in size and may represent adrenal adenoma. Metastatic adrenal nodule cannot be excluded. Dictated by: Frantz Alba M.D. on 01/01/2019 at 15:35 Approved by: Frantz Alba M.D. on 01/01/2019 at 15:49 ECG Data Attestation: I personally reviewed and interpreted this ECG as follows: Prior ECG tracings: not available for review Interpretation: Sinus tachycardia with a rate of 103 P are of 138 QRS of 133 QTC of 443. Patient has left bundle branch block. No other ST changes appreciated. No prior EKGs available. EMS tracing appears similar. MDM Narrative Medical decision making narrative: In with complaint of back pain but was noted to be with O2 89% in the room. Patient has had a bronchitis recently which she has been on steroids as well as inhalers. Patient also complained of some audible wheezing on occasion. Chest x-ray shows what looks like possibly pneumonia but unlikely, concerning for mass/cancer causing lobar collapse. Labs show white count of 18. She has been on steroids as this could be a cause versus infectious. D-dimer is 6900, lab work shows a slightly low chloride at 97, BUN slightly elevated 25. Glucose is 121. All lactate is 1.3. Patient's cardiac enzymes are negative. Marek early elevated AST with a negative procalcitonin. CT of the chest was ordered and shows no PE or thrombus, no dissection or aneurysm noted. Patient does have what appears to be a mass along with some enlarged lymph nodes. Patient also appears to have some collapse of the right upper lobe apically and posterior segment. A moderate right-sided pleural effusion with complete atelectasis of the right lower lobe and dependent atelectasis in the posterior aspect of the right middle and lower lobe. Discussed findings with Dr. Schneider patient's PCP. Plan for admission for hypoxemia. Patient requires O2 up to 4L in the room. Also discussed with patient she is understandably concerned patient had known breast cancer in the past was on tamoxifen. It is unclear if this could be a potential source. We also discussed that her back pain could be related to this but we do not know at this time. Discharge Plan Departure Patient Disposition: Admitted as Observation Clinical Impression: Lung mass, Other pulmonary collapse, Hypoxemia Admit Date/Time: 01/01/19 16:20 Admit Provider: Richa Schneider
[2019-01-01 13:37] LABS: Add Manual Diff / Slide Review NO; Basophils Absolute Auto 200 /uL (0-100); Basophils Percent Auto 0.9 % (0-2); Eosinophils Absolute Auto 100 /uL (0-450); Eosinophils Percent Auto 0.6 % (2-4); Hematocrit 41.5 % (36-46); Hemoglobin 13.5 g/dL (12.0-16.0); Lymphocytes Absolute Auto 1800 /uL (1100-4500); Lymphocytes Percent Auto 10.1 % (25-40); Mean Corpuscular HGB Conc 32.4 % (30-36); Mean Corpuscular Hemoglobin 29.1 PG (26-34); Mean Corpuscular Volume 89.8 fL (80-100); Monocytes Absolute Auto 1000 /uL (0-900); Monocytes Percent Auto 5.4 % (3-14); Neutrophils Absolute Auto 15200 /uL (1500-7000); Platelet Count 119 X10^3/uL (150-400); Red Blood Cell Count 4.62 X10^6/uL (4.0-5.2); White Blood Cell Count 18.3 X10^3/uL (4.5-11.0)
--- NOTE | 2019-01-01 13:40 | ED_ITS ---
HPI - SOB/Dyspnea General Chief Complaint: Shortness of Breath/Dyspnea Stated Complaint: LBB Time Seen by Provider: 01/01/19 13:31 Source: patient and EMS Mode of arrival: EMS Limitations: no limitations History of Present Illness This is a 78-year-old female comes to the emergency department. She initially contacted EMS for a back pain and spasm. Patient states she has had back pain for several weeks. She states that it has been exacerbated by coughing. She thought that maybe it started after seeing a chiropractor. EMS noted that her oxygenation was in the low 90s when she was on room air they also noted that she was tachycardic. And that she had a left bundle branch block on her EKG. It is unclear if this is new or old. Patient denies any fevers. She states she has had a cough for several weeks. She has been steroids as well as inhalers and told she has bronchitis. Patient denies any tobacco use. She states she does feel short of breath. She denies any chest pressure or pain recently. She states that she has not had any other GI or new urinary symptoms other than incontinence when she coughs. No new weakness or numbness in her extremities. Patient saw her primary care/walk-in clinic who placed her on these medications. She also takes medication for blood pressure as well as dyslipidemia. She is on tamoxifen for breast cancer and was cleared in 2014. States she had a lumpectomy, denies any other surgeries at this time. Denies any allergies to medications. Denies any tobacco use since 1979. States that she used to drink heavily and quit about 6 years ago, denies any illicit or marijuana. Related Data Home Medications Medication Instructions Recorded Confirmed albuterol sulfate [ProAir HFA] 2 puff INHALATION Q4H PRN 01/01/19 01/01/19 aspirin 81 mg PO DAILY 01/01/19 01/01/19 azithromycin 250 mg PO DAILY 01/01/19 01/01/19 benzonatate 100 mg PO BID PRN 01/01/19 01/01/19 carvedilol 3.125 mg PO BID 01/01/19 01/01/19 escitalopram oxalate 20 mg PO DAILY 01/01/19 01/01/19 gabapentin 600 mg PO TID 01/01/19 01/01/19 hydrocodone-acetaminophen 1 tab PO Q4-6H PRN 01/01/19 01/01/19 multivitamin with minerals 1 tab PO DAILY 01/01/19 01/01/19 naproxen 500 mg PO BID 01/01/19 01/01/19 naproxen sodium [Aleve] 220 - 440 mg PO DAILY PRN 01/01/19 01/01/19 omeprazole magnesium [Prilosec OTC] 20 mg PO DAILY 01/01/19 01/01/19 pravastatin 40 mg PO BEDTIME 01/01/19 01/01/19 tamoxifen 20 mg PO DAILY 01/01/19 01/01/19 Allergies Allergy/AdvReac Type Severity Reaction Status Date / Time No Known Drug Allergies Allergy Verified 01/01/19 13:52 Review of Systems Review of Systems ROS Unobtainable: All systems reviewed & are unremarkable except as noted in HPI and below Constitutional Denies chills, Denies excessive sweating, Denies fever(s), Denies lethargy and Denies weakness Cardiovascular Denies chest pain, Denies diaphoresis, Denies syncope, Denies edema, Denies irregular heart rhythm, Denies lightheadedness, Denies palpitations, Reports dyspnea, Reports dyspnea on exertion and Denies orthopnea Respiratory Reports change in phlegm color (Phlegm improved), Reports chest congestion, Reports cough, Denies hemoptysis, Denies excessive phlegm production, Denies pain on inspiration, Reports pain with cough (Pain is in lower back), Reports dyspnea, Reports dyspnea on exertion, Denies stridor and Reports wheezing Gastrointestinal Gastrointestinal: Denies abdominal pain, Denies change in bowel habits, Denies diarrhea, Denies nausea and Denies vomiting Genitourinary Denies hematuria, Denies urinary frequency, Denies dysuria, Denies flank pain, Reports urinary incontinence (With cough) and Denies urinary urgency Musculoskeletal Reports back pain, Denies muscle weakness and Denies numbness Neurologic Denies syncope, Denies numbness and Denies weakness Endocrine Denies excessive sweating and Denies palpitations Allergic/Immunologic Reports wheezing [facility] Medical History (Updated 01/01/19 @ 17:14 by Lita Heart DO) Dyslipidemia (Acute) Breast cancer (Chronic) Hypertension (Chronic) Surgical History (Updated 01/01/19 @ 13:36 by Lita Heart DO) H/O lumpectomy (Chronic) Social History (Updated 01/01/19 @ 13:37 by Lita Heart DO) Smoking Status: Former smoker alcohol intake: former substance use type: does not use Social History (Updated 01/01/19 @ 13:37 by Lita Heart DO) Smoking Status: Former smoker alcohol intake: former substance use type: does not use Exam Narrative Exam Narrative: GENERAL: Alert and oriented x three, elderly appearing female in mild distress. Patient O2 drops to 89% while off O2 and being transferred on the bed. HEENT: Head normocephalic, atraumatic, EOMI, pupils reactive, face symmetric, m oist mucous membranes NECK: Supple, full range of motion CARDIOVASCULAR: Regular rate and rhythm without murmurs, rubs or gallops. RESPIRATORY: Breath sounds equal bilaterally, no wheezes, no rhonchi. Patient has some slight crackles bilaterally. No tachypnea or accessory muscle use. Patient speaks in full sentences. ABDOMEN: Soft, nontender. Normoactive bowel sounds all 4 quadrants. No guard ing or rebound, rigidity, no mass : No CVA tenderness BACK: No cervical, thoracic or lumbar vertebral point tenderness. Patient has decreased range of motion with flexion/extension of back. Rectal exam is deferred. Muscle strength is 5/5 in lower extremities. Dorsalis pedis and tibialis pulses are 2+ and lower extremities. Sensation is intact in the lower extremities. EXTREMITIES: Normal range of motion, no clubbing or edema. Neurovascularly intact NEUROLOGICAL: Cranial nerves II through XII grossly intact. Moving all extremities SKIN: Warm, dry, no petechiae, no rashes or lesions. Initial Vital Signs Initial Vital Signs: Vital Signs Pulse Rate 103 H 01/01/19 13:30 Blood Pressure 131/75 01/01/19 13:30 Pulse Oximetry 96 01/01/19 13:30 Course Orders Ordered: ED Orders 01/01/19 13:03 B Type Natriuretic Peptide Stat Complete Blood Count AUTO DIFF Stat Comprehensive Metabolic Panel Stat Magnesium Stat Procalcitonin Stat Troponin & CK Cardiac Panel Stat 01/01/19 13:22 EKG-12 Lead Routine 01/01/19 13:31 Consult to Respiratory Therapy Evaluate & Treat 01/01/19 13:32 XR chest 1V Stat 01/01/19 13:48 Blood Culture Stat D Dimer Stat Lactate (Lactic Acid) Stat Partial Thromboplastin Time Stat Prothrombin Time INR Stat 01/01/19 14:19 CT angio chest PE protocol Stat Discontinued Medications Methylprednisolone (Solu-Medrol 125 Mg Vial) 125 mg IV NOW ONE Stop: 01/01/19 13:32 Last Admin: 01/01/19 13:56 Dose: 125 mg Morphine Sulfate (Morphine) 4 mg IV NOW ONE Stop: 01/01/19 13:32 Last Admin: 01/01/19 13:55 Dose: 4 mg Vital Signs - 8 hr 01/01/19 13:30 01/01/19 13:31 01/01/19 15:27 Temperature 98.9 F Pulse Rate 103 H 110 H Respiratory Rate 21 Blood Pressure 137/74 Blood Pressure [Right Arm] 131/75 Pulse Oximetry 96 89 L 86 L 01/01/19 15:28 01/01/19 15:30 01/01/19 16:30 Temperature Pulse Rate 89 90 Respiratory Rate Blood Pressure Blood Pressure [Right Arm] 143/71 H 157/75 H Pulse Oximetry 94 95 96 MDM - SOB/Dyspnea Lab Data Attestation: I reviewed the patient's lab results. Result diagrams: 01/01/19 13:03 01/01/19 13:03 Lab Results 01/01/19 01/01/19 01/01/19 Range/Units 13:03 13:03 13:03 WBC 18.3 H (4.5-11.0) X10^3/uL RBC 4.62 (4.0-5.2) X10^6/uL Hgb 13.5 (12.0-16.0) g/dL Hct 41.5 (36-46) % MCV 89.8 (80-100) fL MCH 29.1 (26-34) PG MCHC 32.4 (30-36) % RDW 17.0 H (11.6-14.8) % Plt Count 119 L (150-400) X10^3/uL Neut % (Auto) 83.0 H (50-75) % Lymph % (Auto) 10.1 L (25-40) % Bracken % (Auto) 5.4 (3-14) % Eos % (Auto) 0.6 L (2-4) % Baso % (Auto) 0.9 (0-2) % Neut # (Auto) 79160 H (6768-5563) /uL Lymph # (Auto) 1800 (0966-0042) /uL Bracken # (Auto) 1000 H (0-900) /uL Eos # (Auto) 100 (0-450) /uL Baso # (Auto) 200 H (0-100) /uL PT (10.1-12.7) SECONDS INR (0.9-1.3) APTT (26.4-36.2) SECONDS D-Dimer (<230) ng/mL Sodium (137-145) mmol/L Potassium (3.4-5.1) mmol/L Chloride (98-107) mmol/L Carbon Dioxide (22-32) mmol/L BUN (7-17) mg/dL Creatinine (0.52-1.04) mg/dL Estimated GFR (>60) mL/min BUN/Creatinine Ratio (6-22) Glucose (80-110) mg/dL Lactate (0.7-2.1) mmol/L Calcium (8.4-10.2) mg/dL Magnesium 1.9 (1.6-2.3) mg/dL Total Bilirubin (0.2-1.3) mg/dL AST (14-36) IU/L ALT (9-52) IU/L Alkaline Phosphatase (38-126) U/L Total Creatine Kinase 28 L (30-135) U/L CK-MB (CK-2) TNP CK-MB (CK-2) Rel Index TNP Troponin I 0.019 (0.01-0.034) ng/mL B-Natriuretic Peptide < 100 (<100) Total Protein (6.3-8.2) g/dL Albumin (3.5-5.0) g/dL Globulin (1.7-4.1) g/dL Albumin/Globulin Ratio (1.0-2.8) Procalcitonin 0.17 (<0.5) ng/mL 01/01/19 01/01/19 01/01/19 Range/Units 13:03 13:48 13:48 WBC (4.5-11.0) X10^3/uL RBC (4.0-5.2) X10^6/uL Hgb (12.0-16.0) g/dL Hct (36-46) % MCV (80-100) fL MCH (26-34) PG MCHC (30-36) % RDW (11.6-14.8) % Plt Count (150-400) X10^3/uL Neut % (Auto) (50-75) % Lymph % (Auto) (25-40) % Bracken % (Auto) (3-14) % Eos % (Auto) (2-4) % Baso % (Auto) (0-2) % Neut # (Auto) (8789-2079) /uL Lymph # (Auto) (8250-0458) /uL Bracken # (Auto) (0-900) /uL Eos # (Auto) (0-450) /uL Baso # (Auto) (0-100) /uL PT 13.9 H (10.1-12.7) SECONDS INR 1.2 (0.9-1.3) APTT 28 (26.4-36.2) SECONDS D-Dimer 6918 H (<230) ng/mL Sodium 138 (137-145) mmol/L Potassium 4.4 (3.4-5.1) mmol/L Chloride 97 L (98-107) mmol/L Carbon Dioxide 28 (22-32) mmol/L BUN 25 H (7-17) mg/dL Creatinine 0.90 (0.52-1.04) mg/dL Estimated GFR > 60.0 (>60) mL/min BUN/Creatinine Ratio 27.8 H (6-22) Glucose 121 H (80-110) mg/dL Lactate 1.3 (0.7-2.1) mmol/L Calcium 10.1 (8.4-10.2) mg/dL Magnesium (1.6-2.3) mg/dL Total Bilirubin 1.2 (0.2-1.3) mg/dL AST 67 H (14-36) IU/L ALT 17 (9-52) IU/L Alkaline Phosphatase 98 (38-126) U/L Total Creatine Kinase (30-135) U/L CK-MB (CK-2) CK-MB (CK-2) Rel Index Troponin I (0.01-0.034) ng/mL B-Natriuretic Peptide (<100) Total Protein 7.0 (6.3-8.2) g/dL Albumin 3.9 (3.5-5.0) g/dL Globulin 3.1 (1.7-4.1) g/dL Albumin/Globulin Ratio 1.3 (1.0-2.8) Procalcitonin (<0.5) ng/mL 01/01/19 Range/Units 14:47 WBC (4.5-11.0) X10^3/uL RBC (4.0-5.2) X10^6/uL Hgb (12.0-16.0) g/dL Hct (36-46) % MCV (80-100) fL MCH (26-34) PG MCHC (30-36) % RDW (11.6-14.8) % Plt Count (150-400) X10^3/uL Neut % (Auto) (50-75) % Lymph % (Auto) (25-40) % Bracken % (Auto) (3-14) % Eos % (Auto) (2-4) % Baso % (Auto) (0-2) % Neut # (Auto) (8165-0662) /uL Lymph # (Auto) (6438-6634) /uL Bracken # (Auto) (0-900) /uL Eos # (Auto) (0-450) /uL Baso # (Auto) (0-100) /uL PT (10.1-12.7) SECONDS INR (0.9-1.3) APTT (26.4-36.2) SECONDS D-Dimer (<230) ng/mL Sodium (137-145) mmol/L Potassium (3.4-5.1) mmol/L Chloride (98-107) mmol/L Carbon Dioxide (22-32) mmol/L BUN (7-17) mg/dL Creatinine (0.52-1.04) mg/dL Estimated GFR (>60) mL/min BUN/Creatinine Ratio (6-22) Glucose (80-110) mg/dL Lactate Cancelled (0.7-2.1) mmol/L Calcium (8.4-10.2) mg/dL Magnesium (1.6-2.3) mg/dL Total Bilirubin (0.2-1.3) mg/dL AST (14-36) IU/L ALT (9-52) IU/L Alkaline Phosphatase (38-126) U/L Total Creatine Kinase (30-135) U/L CK-MB (CK-2) CK-MB (CK-2) Rel Index Troponin I (0.01-0.034) ng/mL B-Natriuretic Peptide (<100) Total Protein (6.3-8.2) g/dL Albumin (3.5-5.0) g/dL Globulin (1.7-4.1) g/dL Albumin/Globulin Ratio (1.0-2.8) Procalcitonin (<0.5) ng/mL Imaging Data Chest x-ray: Radiologist's impression: [place] [address] XRay Report Signed Patient: Andrew CastroR#: [id number] : 3Acct:[id number] Age/Sex: 78 / FDate of Service: 01/01/19 Loc: ED Accession Number: [id number] Procedure: XR chest 1V Ordering Provider: Lita Heart D.O. PROCEDURE: XR CHEST 1V INDICATIONS: sob, several weeks, low O2 TECHNIQUE: One view of the chest was acquired. COMPARISON: None. FINDINGS: Surgical changes and devices: The patient the right diaphragm is present. There is a transient or shaped area of prominent consolidation identified within the right suprahilar region. There may be a trace right-sided pleural effusion. The aeration of the left lung is within normal limits. No pneumothorax is evident. Lungs and pleura: Lungs are clear. No pleural effusions or pneumothorax. Mediastinum: Mediastinal contours appear normal. Heart size is normal. There is aortic atherosclerosis. Bones and chest wall: No suspicious bony lesions. Overlying soft tissues appear unremarkable. IMPRESSION: Probable right upper lobe collapse. Chest CT with contrast is recommended for further evaluation. Dictated by: Jhon Ramirez M.D. on 01/01/2019 at 13:07 Approved by: Jhon Ramirez M.D. on 01/01/2019 at 13:09 CT scan - chest: Radiologist's impression: [place] [address] CT Scan Report Signed Patient: Danitza Castro#: [id number] : 3Acct:[id number] Age/Sex: 78 / FDate of Service: 01/01/19 Loc: ED Accession Number: [id number] Procedure: CT angio chest PE protocol Ordering Provider: Lita Heart D.O. PROCEDURE: CT ANGIO CHEST PE PROTOCOL INDICATIONS: right upper lobe opacification, infection vs. other TECHNIQUE: After the administration of intravenous contrast, 2 mm thick sections acquired from the pulmonary apices to the posterior costophrenic angles. 3-dimensional maximum intensity projection (MIP) coronal and sagittal reformats were then acquired through the thorax. For radiation dose reduction, the following was used: automated exposure control, adjustment of mA and/or kV according to patient size. COMPARISON: None. FINDINGS: Image quality: Excellent. Pulmonary arteries: Pulmonary arteries are normal in size, and demonstrate no intraluminal filling defects to suggest central pulmonary embolism. Lungs and pleura: There is a moderate size right pleural effusion with near complete atelectasis of right lower lobe. Atelectasis involving medial portion of right upper lobe is seen. Central and left peripheral airways are patent. Significant narrowing of distal right upper lobe apical and posterior segment bronchi are seen. Mediastinum: Heart size is mildly enlarged, with small to moderate-sized pericardial effusion measures up to 11 mm in thickness adjacent to left ventricle. Prominent soft tissue density involving mediastinum and right hilar region are seen concerning for right hilar mass and mediastinal lymphadenopathy, and measures up to 1.8 cm in short axis diameter in the subcarinal space. Thoracic aorta is normal in caliber and enhancement. Esophagus is normal in caliber, with a small hiatal hernia. Bones and chest wall: Moderate kyphosis is seen. Degenerative disc disease throughout thoracic spine is noted. No gross acute compression fracture. No definite lytic or sclerotic bony lesion. Thyroid gland is within normal limits. No axillary or supraclavicular adenopathy. Abdomen: No gross abnormality is seen in visualized portion of liver, and spleen. There is suggestion of a left adrenal nodule measures 1.6 x 2.8 cm in size. Distended gallbladder is seen, no discrete gallbladder wall abnormality. IMPRESSION: 1. No evidence of pulmonary emboli. No thoracic aortic aneurysm or dissection. 2. Collapse of right upper lobe apical and posterior segment. Moderate right- sided pleural effusion with near complete atelectasis of right lower lobe. Dependent atelectasis in posterior aspect of right middle and lower lobe is seen. Mild left basilar atelectasis. 3. Left sided airway and central airway is patent. There is suggestive of a right hilar mass with mass effect on adjacent right upper lobe bronchi. 4. Mediastinal lymphadenopathy as above. 5. Mild cardiomegaly, small to moderate pericardial effusion as above. 6. Left adrenal nodule measures 1.8 x 2.8 cm in size and may represent adrenal adenoma. Metastatic adrenal nodule cannot be excluded. Dictated by: Frantz Alba M.D. on 01/01/2019 at 15:35 Approved by: Frantz Alba M.D. on 01/01/2019 at 15:49 ECG Data Attestation: I personally reviewed and interpreted this ECG as follows: Prior ECG tracings: not available for review Interpretation: Sinus tachycardia with a rate of 103 P are of 138 QRS of 133 QTC of 443. Patient has left bundle branch block. No other ST changes appreciated. No prior EKGs available. EMS tracing appears similar. MDM Narrative Medical decision making narrative: In with complaint of back pain but was noted to be with O2 89% in the room. Patient has had a bronchitis recently which she has been on steroids as well as inhalers. Patient also complained of some audible wheezing on occasion. Chest x-ray shows what looks like possibly pneumonia but unlikely, concerning for mass/cancer causing lobar collapse. Labs show white count of 18. She has been on steroids as this could be a cause versus infectious. D-dimer is 6900, lab work shows a slightly low chloride at 97, BUN slightly elevated 25. Glucose is 121. All lactate is 1.3. Patient's cardiac enzymes are negative. Marek early elevated AST with a negative procalcitonin. CT of the chest was ordered and shows no PE or thrombus, no dissection or aneurysm noted. Patient does have what appears to be a mass along with some enlarged lymph nodes. Patient also appears to have some collapse of the right upper lobe apically and posterior segment. A moderate right-sided pleural effusion with complete atelectasis of the right lower lobe and dependent atelectasis in the posterior aspect of the right middle and lower lobe. Discussed findings with Dr. Schneider patient's PCP. Plan for admission for hypoxemia. Patient requires O2 up to 4L in the room. Also discussed with patient she is understandably concerned patient had known breast cancer in the past was on tamoxifen. It is unclear if this could be a potential source. We also discussed that her back pain could be related to this but we do not know at this time. Discharge Plan Departure Patient Disposition: Admitted as Observation Clinical Impression: Lung mass, Other pulmonary collapse, Hypoxemia Admit Date/Time: 01/01/19 16:20 Admit Provider: Richa Schneider
[2019-01-01 13:54] LABS: Creatine Kinase 28 U/L (30-135); Magnesium 1.9 mg/dL (1.6-2.3)
[2019-01-01] MEDS: MORPHINE 4 MG/ML INJ IV (13:55)
[2019-01-01 13:56] LABS: Alanine Aminotransferase 17 IU/L (9-52); Albumin 3.9 g/dL (3.5-5.0); Albumin Globulin Ratio 1.3 (1.0-2.8); Alkaline Phosphatase 98 U/L (38-126); Aspartate Aminotransferase 67 IU/L (14-36); BUN Creatinine Ratio 27.8 (6-22); Bilirubin Total 1.2 mg/dL (0.2-1.3); Blood Urea Nitrogen 25 mg/dL (7-17); Calcium 10.1 mg/dL (8.4-10.2); Carbon Dioxide 28 mmol/L (22-32); Chloride 97 mmol/L (98-107); Estimated Glomerular Filt Rate > 60.0 mL/min (>60); Globulin 3.1 g/dL (1.7-4.1); Glucose 121 mg/dL (80-110); HEMOLYSIS 58 (0-50); Potassium 4.4 mmol/L (3.4-5.1); Sodium 138 mmol/L (137-145)
[2019-01-01] MEDS: methylPREDNISolone 125 MG/2 ML VIAL IV (13:56)
[2019-01-01 14:07] LABS: Troponin I 0.019 ng/mL (0.01-0.034)
[2019-01-01 14:12] LABS: B Type Natriuretic Peptide < 100 (<100)
[2019-01-01 14:14] LABS: INR 1.2 (0.9-1.3); Prothrombin Time 13.9 SECONDS (10.1-12.7)
[2019-01-01 14:15] LABS: Procalcitonin 0.17 ng/mL (<0.5)
--- NOTE | 2019-01-01 14:16 | PC.NURSE ---
updated pt's family. per dr thompson pt is most likely going to be admitted for hypoxemia.
[2019-01-01 14:17] LABS: PTT Partial Thromboplastin Tim 28 SECONDS (26.4-36.2)
[2019-01-01 14:18] LABS: Lactate (Lactic Acid) 1.3 mmol/L (0.7-2.1)
--- NOTE | 2019-01-01 14:19 | DI.CT.S_ITS ---
PROCEDURE: CT ANGIO CHEST PE PROTOCOL INDICATIONS: right upper lobe opacification, infection vs. other TECHNIQUE: After the administration of intravenous contrast, 2 mm thick sections acquired from the pulmonary apices to the posterior costophrenic angles. 3-dimensional maximum intensity projection (MIP) coronal and sagittal reformats were then acquired through the thorax. For radiation dose reduction, the following was used: automated exposure control, adjustment of mA and/or kV according to patient size. COMPARISON: None. FINDINGS: Image quality: Excellent. Pulmonary arteries: Pulmonary arteries are normal in size, and demonstrate no intraluminal filling defects to suggest central pulmonary embolism. Lungs and pleura: There is a moderate size right pleural effusion with near complete atelectasis of right lower lobe. Atelectasis involving medial portion of right upper lobe is seen. Central and left peripheral airways are patent. Significant narrowing of distal right upper lobe apical and posterior segment bronchi are seen. Mediastinum: Heart size is mildly enlarged, with small to moderate-sized pericardial effusion measures up to 11 mm in thickness adjacent to left ventricle. Prominent soft tissue density involving mediastinum and right hilar region are seen concerning for right hilar mass and mediastinal lymphadenopathy, and measures up to 1.8 cm in short axis diameter in the subcarinal space. Thoracic aorta is normal in caliber and enhancement. Esophagus is normal in caliber, with a small hiatal hernia. Bones and chest wall: Moderate kyphosis is seen. Degenerative disc disease throughout thoracic spine is noted. No gross acute compression fracture. No definite lytic or sclerotic bony lesion. Thyroid gland is within normal limits. No axillary or supraclavicular adenopathy. Abdomen: No gross abnormality is seen in visualized portion of liver, and spleen. There is suggestion of a left adrenal nodule measures 1.6 x 2.8 cm in size. Distended gallbladder is seen, no discrete gallbladder wall abnormality. IMPRESSION: 1. No evidence of pulmonary emboli. No thoracic aortic aneurysm or dissection. 2. Collapse of right upper lobe apical and posterior segment. Moderate right-sided pleural effusion with near complete atelectasis of right lower lobe. Dependent atelectasis in posterior aspect of right middle and lower lobe is seen. Mild left basilar atelectasis. 3. Left sided airway and central airway is patent. There is suggestive of a right hilar mass with mass effect on adjacent right upper lobe bronchi. 4. Mediastinal lymphadenopathy as above. 5. Mild cardiomegaly, small to moderate pericardial effusion as above. 6. Left adrenal nodule measures 1.8 x 2.8 cm in size and may represent adrenal adenoma. Metastatic adrenal nodule cannot be excluded. Dictated by: Frantz Alba M.D. on 01/01/2019 at 15:35 Approved by: Frantz Alba M.D. on 01/01/2019 at 15:49
[2019-01-01 14:37] LABS: D Dimer 6918 ng/mL (<230)
--- NOTE | 2019-01-01 15:27 | PC.NURSE ---
increase to 4lpm via nc, sat increase to 94% dr thompson aware.
--- NOTE | 2019-01-01 16:33 | PC.NURSE ---
Provider just informed patient of results. In with pt to ensure, if she wanted any family called or the clinical quality assurance specialist to be called. Pt declined at this time, stating with family, she would like more information about mass before telling family.
--- NOTE | 2019-01-01 19:26 | PM.HP.1 ---
History of Present Illness Date Patient Seen: 01/01/19 Time Patient Seen: 19:38 Chief complaint: LBB Narrative: This 78-year-old female is admitted to the floor after presenting to the ED via EMS transport for worsening lower back pain/spasm in the setting of a worsening cough. Lumbar back pain radiates around her side and has been increasing in intensity for the past 5-6 weeks, sharp. Was seen in urgent care on 12/19/2018 and diagnosed with bronchitis. Prescribed prednisone, doxycycline, and benzonatate with no relief in symptoms. Seen again 1 week later in primary care clinic by CALI Perrin and prescribed a Z-Vicente with benzonatate and again had no improvement in symptoms. She denied fever or allergies. She does have history of congestive heart failure and is a breast cancer survivor, on tamoxifen. Has never had a colonoscopy, FIT test on 02/13/2018 negative. Chest x-ray on 12/25/18 showed prominent pulmonary vasculature and pulmonary edema with some right pleural effusion. She was seen again in primary care clinic by myself on 12/30/2018 4 days after her chest x-ray, diagnosis of bronchitis questioned and workup for heart failure versus pneumonia initiated. Repeat chest xray and labs ordered but not completed. The following day she called to say that her symptoms had worsened at home and by today she felt so much pain in her back that she thought it was the end. 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 Upon arrival in the ED, vital signs were significant for a HR of 103, BP 131/75, T 98.9 and oxygen saturation of 96%, this later fell to 86% and was treated with 4 L of oxygen with good effect. Workup significant for an elevated D-dimer of [address] angiogram for PE. She did have evidence of apical right upper lobe pneumothorax and moderate right-sided pleural effusion. Near complete atelectasis of the right lower lobe was noted. A new right hilar mass with mass effect on the right upper lobe bronchus was seen along with a left adrenal nodule 1.8 x 2.8 cm, query metastatic adrenal nodule. She was noted to have mediastinal lymphadenopathy. Other pertinent labs included an elevated white count of 18.3 with a left shift and low platelets at 119. AST 62. EKG significant for left bundle branch block, no previous study for comparison, troponin negative. Patient administered methylprednisolone 125 mg IM x1 and morphine sulfate 4 mg IV x 1 before being transferred to the floor. Past medical history: 1. History of breast cancer 2. Shoulder bursitis 3. Congestive heart failure 4. Hypertension 5. Hyperlipidemia 6. Peripheral neuropathy 7. Major depression Past surgical history: 1. ORIF, R humerus 2. Lumpectomy, breast Family history: Father from pancreatic cancer in his 90s. Mother with seizure disorder. Brother, VT at age 31, seizure disorder. 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 Supportive family with children and grandchildren nearby. 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 Patient History Medical History (Updated 01/01/19 @ 17:14 by Lita Heart DO) Dyslipidemia (Acute) Breast cancer (Chronic) Hypertension (Chronic) Surgical History (Updated 01/01/19 @ 13:36 by Lita Heart DO) H/O lumpectomy (Chronic) Social History (Updated 01/01/19 @ 13:37 by Lita Heart DO) household members: spouse Smoking Status: Former smoker alcohol intake: former substance use type: does not use Family & Social History Social History: household members spouse Prior Living Arrangements Apartment/Condo Safety & Behavioral: Feels Safe in Current Yes Environment Been Physically Hurt or No Threatened By a Person Suicidal Ideation Description None Suicide Plan Description No Plan Tobacco & Substance use: Smoking Status Former smoker alcohol intake former Substance Use Type does not use Meds Home Medications Medication Instructions Recorded Confirmed Type albuterol sulfate [ProAir HFA] 2 puff INHALATION Q4H PRN 01/01/19 01/01/19 History aspirin 81 mg PO DAILY 01/01/19 01/01/19 History azithromycin 250 mg PO DAILY 01/01/19 01/01/19 History benzonatate 100 mg PO BID PRN 01/01/19 01/01/19 History carvedilol 3.125 mg PO BID 01/01/19 01/01/19 History escitalopram oxalate 20 mg PO DAILY 01/01/19 01/01/19 History gabapentin 600 mg PO TID 01/01/19 01/01/19 History hydrocodone-acetaminophen 1 tab PO Q4-6H PRN 01/01/19 01/01/19 History multivitamin with minerals 1 tab PO DAILY 01/01/19 01/01/19 History naproxen 500 mg PO BID 01/01/19 01/01/19 History naproxen sodium [Aleve] 220 - 440 mg PO DAILY PRN 01/01/19 01/01/19 History omeprazole magnesium [Prilosec OTC] 20 mg PO DAILY 01/01/19 01/01/19 History pravastatin 40 mg PO BEDTIME 01/01/19 01/01/19 History tamoxifen 20 mg PO DAILY 01/01/19 01/01/19 History Allergies Allergy/AdvReac Type Severity Reaction Status Date / Time No Known Drug Allergies Allergy Verified 01/01/19 13:52 Review of Systems Review of Systems All systems reviewed & are unremarkable except as noted in HPI and below Exam Vital Signs (past 8 hours): - 01/01/19 13:30 01/01/19 13:31 01/01/19 15:27 Temperature 98.9 F Pulse Rate 103 H 110 H Respiratory Rate 21 Blood Pressure 137/74 Blood Pressure [Right Arm] 131/75 Pulse Oximetry 96 89 L 86 L 01/01/19 15:28 01/01/19 15:30 01/01/19 16:30 Temperature Pulse Rate 89 90 Respiratory Rate Blood Pressure Blood Pressure [Right Arm] 143/71 H 157/75 H Pulse Oximetry 94 95 96 01/01/19 17:24 Temperature Pulse Rate 86 Respiratory Rate 19 Blood Pressure 148/70 H Blood Pressure [Right Arm] Pulse Oximetry 96 Oxygen Delivery Method Room Air Oxygen Flow Rate 4 Narrative Exam Narrative: GENERAL: Alert and oriented, appearing stated age and in no acute distress. HEENT: Head normocephalic/atraumatic. Pupils equal, round, and reactive to light and accomodation. Extraocular muscles intact. Tympanic membranes clear. Nasal mucosa moist, septum midline. Oral mucosa moist, no lesions. Neck soft and supple, no lymphadenopathy. LUNGS: No air movement in right apex, otherwise very shallow inspiratory effort secondary to guarding, auscultation is clear he has areas on point exam. No audible wheezes, rhonchi,. CV: Normal S1 and S2 with regular rate and rhythm, no audible murmurs, rubs or gallops. BREASTS: Symmetric, no masses or lesions. No nipple retraction or discharge. No supraclavicular or axillary lymphadenopathy. ABDOMEN: Soft, non-tender, non-distended, no organomegaly. Positive bowel sounds. EXTREMITIES: No clubbing, cyanosis, or edema. NEURO: Cranial nerves II through XII grossly intact, no focal deficits. PSYCH: Alert and oriented x 3. SKIN: No concerning lesions. Objective Labs Result Diagrams: 01/01/19 13:03 01/01/19 13:03 Labs: Laboratory Results - last 24 hr 01/01/19 01/01/19 01/01/19 13:03 13:03 13:03 WBC 18.3 H RBC 4.62 Hgb 13.5 Hct 41.5 MCV 89.8 MCH 29.1 MCHC 32.4 RDW 17.0 H Plt Count 119 L Neut % (Auto) 83.0 H Lymph % (Auto) 10.1 L [place] % (Auto) 5.4 Eos % (Auto) 0.6 L Baso % (Auto) 0.9 Neut # (Auto) 48082 H Lymph # (Auto) 1800 [place] # (Auto) 1000 H Eos # (Auto) 100 Baso # (Auto) 200 H PT INR APTT D-Dimer Sodium Potassium Chloride Carbon Dioxide BUN Creatinine Estimated GFR BUN/Creatinine Ratio Glucose Lactate Calcium Magnesium 1.9 Total Bilirubin AST ALT Alkaline Phosphatase Total Creatine Kinase 28 L CK-MB (CK-2) TNP CK-MB (CK-2) Rel Index TNP Troponin I 0.019 B-Natriuretic Peptide < 100 Total Protein Albumin Globulin Albumin/Globulin Ratio Procalcitonin 0.17 01/01/19 01/01/19 01/01/19 13:03 13:48 13:48 WBC RBC Hgb Hct MCV MCH MCHC RDW Plt Count Neut % (Auto) Lymph % (Auto) [place] % (Auto) Eos % (Auto) Baso % (Auto) Neut # (Auto) Lymph # (Auto) [place] # (Auto) Eos # (Auto) Baso # (Auto) PT 13.9 H INR 1.2 APTT 28 D-Dimer 6918 H Sodium 138 Potassium 4.4 Chloride 97 L Carbon Dioxide 28 BUN 25 H Creatinine 0.90 Estimated GFR > 60.0 BUN/Creatinine Ratio 27.8 H Glucose 121 H Lactate 1.3 Calcium 10.1 Magnesium Total Bilirubin 1.2 AST 67 H ALT 17 Alkaline Phosphatase 98 Total Creatine Kinase CK-MB (CK-2) CK-MB (CK-2) Rel Index Troponin I B-Natriuretic Peptide Total Protein 7.0 Albumin 3.9 Globulin 3.1 Albumin/Globulin Ratio 1.3 Procalcitonin 01/01/19 14:47 WBC RBC Hgb Hct MCV MCH MCHC RDW Plt Count Neut % (Auto) Lymph % (Auto) [place] % (Auto) Eos % (Auto) Baso % (Auto) Neut # (Auto) Lymph # (Auto) [place] # (Auto) Eos # (Auto) Baso # (Auto) PT INR APTT D-Dimer Sodium Potassium Chloride Carbon Dioxide BUN Creatinine Estimated GFR BUN/Creatinine Ratio Glucose Lactate Cancelled Calcium Magnesium Total Bilirubin AST ALT Alkaline Phosphatase Total Creatine Kinase CK-MB (CK-2) CK-MB (CK-2) Rel Index Troponin I B-Natriuretic Peptide Total Protein Albumin Globulin Albumin/Globulin Ratio Procalcitonin Assessment & Plan Assessment & Plan narrative: 1. Acute hypoxic respiratory failure secondary to right upper lobe pneumothorax and right pleural effusion. Patient is clinically stable with improved vital signs on supplemental oxygen. Will continue oxygen per nasal cannula and titrate to keep her saturations above 88%. Currently on 4 L. Repeat chest x-ray in morning with Oncology consult. Possible need for pleural biopsy to identify cause of pleural effusion, will coordinate with Oncology. 2. Right hilar mass and left adrenal nodule, concern for malignancy. Oncology consult in the morning. 3. Back pain, cannot rule out metastatic process versus degenerative joint disease verses compression fracture. Will proceed with lumbosacral x-ray. Anticipate need for CT abdomen/pelvis to evaluate adjacent structures more fully. Will coordinate this with Oncology. Morphine for pain control. 4. Leukocytosis with left shift. In the setting of a normal lactic acid, this is likely a stress response. Also, patient has recently been on a prednisone burst and antibiotics. No radiological or clinical evidence of pneumonia, afebrile. Will repeat chest x-ray and trend CBC, medicine if appropriate. 5. Thrombocytopenia, new. Possibly secondary to a viral/bacterial infection versus acute phase reactant. Will trend CBC. 6. Left bundle branch block, new. Serial cardiac troponins. EKG in the morning. Possible need for full cardiac workup if troponins negative. 7. Chronic medical conditions including congestive heart failure, hypertension, hyperlipidemia, peripheral neuropathy, and depression. Patient will continue on carvedilol 3.125 mg p.o. b.i.d. and pravastatin 40 mg p.o. q.day. 8. DVT prophylaxis, Lovenox. 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
[2019-01-01] MEDS: DEXTROSE 5%-0.45NS W/KCL 20MEQ 1,000 ML 100 MEQ IV (21:52)
[2019-01-01] MEDS: CARVEDILOL 3.125 MG TABLET PO (21:54)
[2019-01-01] MEDS: BENZONATATE 100 MG CAPSULE PO (22:12)
[2019-01-01] MEDS: ENOXAPARIN 40 MG/0.4 ML SYRINGE SUBCUT (22:12)
[2019-01-01] MEDS: PRAVASTATIN 20 MG TABLET 40 MG PO (22:12)
[2019-01-01] MEDS: MORPHINE 2 MG/ML INJ IV (22:33)
--- NOTE | 2019-01-01 22:47 | PC.NURSE ---
Addendum entered by Kaia Nguyễn R.N. 01/01/19 23:46: pt had home medications in her purse and pharmacy brought them downstairs. Addendum entered by Kaia Nguyễn R.N. 01/01/19 23:02: pt up to BSC 1PA-FWW. Reporting mild pain, but still doesn't put number to pain. pt void was moderate, concentrated and had a small BM. Original Note: pt arrived to floor at 1730. Reporting sever pain with movement, but doesn't put a number to it. Apprehensive to transfer and reposition due to pain. Able to reposition moderately IND. Dr. Schneider saw pt in room around 1915 and discussed plan of care. PIV was compremised and removed, a new 20g was placed in pt's left forearm and tolerated well. D5 1/2NS with 20mEq K infusing at 100/hr. 2mg Morphine IV administered at 2230 for pain before BSC transfer (upon pt's request for void).
--- NOTE | 2019-01-01 23:45 | PC.NURSE ---
FULL CODE pt verbalized wishing to be full code and communicated that family will bring in POLST form tomorrow.
[2019-01-02] VITALS (18 sets, daily range): BP systolic 124–169; BP diastolic 75–89; PULSE 65–90; RESP 14–20; TEMP 36.7–37.1; O2SAT 88–99
--- NOTE | 2019-01-02 | DI.RAD.S_ITS ---
PROCEDURE: XR CHEST 2V INDICATIONS: s/u collapsed lung and pleural effusion TECHNIQUE: 2 views of the chest were acquired. COMPARISON: [facility], CT, CT ANGIO CHEST PE PROTOCOL, 01/01/2019, 14:56. [facility], CR, XR CHEST 1V, 01/01/2019, 13:57. FINDINGS: Surgical changes and devices: None. Lungs and pleura: Lungs are abnormal, with a subpulmonic pleural effusion and crowding of the bronchovascular markings at the lobe atelectasis, crowding the atelectatic lung against the mediastinal border superiorly.. No pleural effusions or pneumothorax. Mediastinum: Mediastinal contours are abnormal due to the apposition of the atelectatic right upper lobe against the right mediastinal contour. Heart size is normal. Bones and chest wall: No suspicious bony abnormalities. Soft tissues appear unremarkable. IMPRESSION: There is a significant concern for presence of subpulmonic right pleural effusion, and mass lesion causing complete atelectasis of the right upper lobe. Please also refer to the CT scanning that was performed 01/01/19. Bronchoscopy may be warranted if mucous plugging is clinically suspected. Also, nuclear medicine that CT scanning a be helpful to discriminate between a boundary of lung mass versus atelectasis. Dictated by: Dusty Warren M.D. on 01/02/2019 at 14:01 Approved by: Dusty Warren M.D. on 01/02/2019 at 14:04
[2019-01-02 00:45] LABS: Troponin I 0.018 ng/mL (0.01-0.034)
[2019-01-02] MEDS: MORPHINE 2 MG/ML INJ IV ×6 (03:36→21:34)
--- NOTE | 2019-01-02 05:13 | PC.NURSE ---
Addendum entered by Sarai Pereira R.N. 01/02/19 06:04: Pt has x-ray orders. Planned to have TRAINING MANAGER transport pt however per Jesse in x-ray there is a broken water pipe that has caused a leak. X-ray will call when leak is fixed. Original Note: Assumed care of pt at 2300 on 01/01/19. Pt sleeping during hand-off report. CPOX on Sats 94-96% 4L NC. Awakens to voice for assessment. Denies chest pain, SOB, Pressure or dizziness. Medicating per mar for Back pain. Gen weakness noted. Able to help turn to reposition. Pt declined to reposition, Pressure injury prevention education provided. Calling appropriately for needs. Bed alarm on.
--- NOTE | 2019-01-02 05:49 | DI.RAD.S_ITS ---
PROCEDURE: XR LUMBAR SPINE 2-3V INDICATIONS: Back pain times 5-6 weeks, worsening, t/o malignancy TECHNIQUE: 3 views of the lumbar spine were acquired. COMPARISON: [facility], CT, CT ANGIO CHEST PE PROTOCOL, 01/01/2019, 14:56. FINDINGS: Bones: 5 [id number] vertebrae are present. There is normal bony alignment. No definite acute vertebral body compression fractures but there is mild bowing of the upper and lower endplate of L1, potentially a manifestation of old or recent mild compression fracture in that area. No suspicious bony lesions. Note is made of mild grade 1 anterolisthesis of L4 and L5 associated with ligamentous laxity from facet osteoarthritis extending from L3-S1, moderate in overall severity. Soft tissues: Overlying bowel gas pattern is normal. No suspicious soft tissue calcifications. IMPRESSION: Underlying infection or neoplasm is not found. Please note that MR scanning with contrast allows a much more accurate assessment for such underlying abnormalities. There is degenerative disc disease and facet osteoarthritis along the lumbosacral spine to the degree that ligamentous laxity allows anterolisthesis (mild grade 1) of L4 on L5. No definite recent trauma has occurred but there is superior and inferior endplate mild bowing at L2, conceivably a manifestation of mild compression fractures in those 2 areas. MR scanning would accurately establish chronicity of that appearance. Dictated by: Dusty Warren M.D. on 01/02/2019 at 14:04 Approved by: Dusty Warren M.D. on 01/02/2019 at 14:10
[2019-01-02 05:56] LABS: Add Manual Diff / Slide Review NO; Basophils Absolute Auto 100 /uL (0-100); Basophils Percent Auto 0.6 % (0-2); Eosinophils Absolute Auto 0 /uL (0-450); Hematocrit 35.8 % (36-46); Hemoglobin 11.7 g/dL (12.0-16.0); Lymphocytes Absolute Auto 800 /uL (1100-4500); Lymphocytes Percent Auto 5.4 % (25-40); Mean Corpuscular HGB Conc 32.8 % (30-36); Mean Corpuscular Hemoglobin 29.2 PG (26-34); Mean Corpuscular Volume 89.1 fL (80-100); Monocytes Absolute Auto 400 /uL (0-900); Monocytes Percent Auto 3.1 % (3-14); Neutrophils Absolute Auto 12600 /uL (1500-7000); Neutrophils Percent Auto 90.9 % (50-75); Platelet Count 100 X10^3/uL (150-400); Red Blood Cell Count 4.01 X10^6/uL (4.0-5.2); Red Cell Distribution Width 17.1 % (11.6-14.8); White Blood Cell Count 13.8 X10^3/uL (4.5-11.0)
[2019-01-02 06:00] LABS: BUN Creatinine Ratio 28.6 (6-22); Blood Urea Nitrogen 20 mg/dL (7-17); Calcium 9.1 mg/dL (8.4-10.2); Carbon Dioxide 34 mmol/L (22-32); Chloride 98 mmol/L (98-107); Estimated Glomerular Filt Rate > 60.0 mL/min (>60); Glucose 184 mg/dL (80-110); HEMOLYSIS < 15 (0-50); Potassium 4.5 mmol/L (3.4-5.1); Sodium 136 mmol/L (137-145)
[2019-01-02 06:20] LABS: B Type Natriuretic Peptide 284 (<100)
--- NOTE | 2019-01-02 06:50 | DI.RAD.S_ITS ---
PROCEDURE: XR SACRUM COCCYX MIN 2V INDICATIONS: Back pain times 5-6 weeks, worsening, r/o malignancy TECHNIQUE: 3 views of the sacrum and coccyx acquired. COMPARISON: [facility], CR, XR LUMBAR SPINE 2-3V, 01/02/2019, 12:54. FINDINGS: Bones: No fractures or dislocations. No suspicious bony lesions. Soft tissues: Visualized bowel gas pattern is normal. No suspicious soft tissue densities. IMPRESSION: No cell changer time, no trauma found. Please note that accurate assessment for presence or absence of a neoplastic process at the sacrum and coccyx is very limited and for this reason MR scanning is considered the gold standard if underlying infection or malignancy is suspected. Dictated by: Dusty Warren M.D. on 01/02/2019 at 13:51 Approved by: Dusty Warren M.D. on 01/02/2019 at 13:52
--- NOTE | 2019-01-02 07:23 | P.PN_ITS ---
Subjective Date Patient Seen: 01/02/19 Time Patient Seen: 07:21 Interval history: Patient doing well, still having cough and taking only small breaths to avoid a coughing spasm. Back is still very painful, receiving morphine 2 mg every 4-6 hours, blood pressures have been uncontrolled over night. Appetite is poor, fatigue continues. Otherwise, she is doing well, feels safe in the hospital. She is looking forward to speaking with the oncologist today. Does not want to talk about her this with her family until she knows what is going on. Exam Vital Signs (past 8 hours): - 01/01/19 23:30 01/02/19 01:00 01/02/19 03:35 Temperature 97.9 F 98.0 F Pulse Rate 81 90 Respiratory Rate 19 20 Blood Pressure 152/67 H 169/89 H Pulse Oximetry 97 96 97 Oxygen Delivery Method Nasal Cannula Oxygen Flow Rate 4 Narrative Exam Narrative: GENERAL: Alert and oriented, appearing stated age and in no ac codi distress. HEENT: Head normocephalic/atraumatic. Pupils equal, round, and reactive to light and accomodation. Extraocular muscles intact. Tympanic membranes clear. Nasal mucosa moist, septum midline. Oral mucosa moist, no lesions. Neck soft and supple, no lymphadenopathy. LUNGS: Lack of breath sounds on the right apex, otherwise diminished inspiratory effort but vlear to ausculation bilaterally, no wheezes, rhonchi or rales. CV: Normal S1 and S2 with regular rate and rhythm, no audible murmurs, rubs or gallops. BREASTS: Symmetric, no masses or lesions. No nipple retraction or discharge. No supraclavicular or axillary lymphadenopathy. ABDOMEN: Soft, non-tender, non-distended, no organomegaly. Positive bowel sounds. EXTREMITIES: No clubbing, cyanosis, or edema. NEURO: Cranial nerves II through XII grossly intact, no focal deficits. PSYCH: Alert and oriented x 3. SKIN: No concerning lesions. Objective Labs Result Diagrams: 01/02/19 05:18 01/02/19 05:18 Labs: Laboratory Results - last 24 hr 01/01/19 01/01/19 01/01/19 13:03 13:03 13:03 WBC 18.3 H RBC 4.62 Hgb 13.5 Hct 41.5 MCV 89.8 MCH 29.1 MCHC 32.4 RDW 17.0 H Plt Count 119 L Neut % (Auto) 83.0 H Lymph % (Auto) 10.1 L [place] % (Auto) 5.4 Eos % (Auto) 0.6 L Baso % (Auto) 0.9 Neut # (Auto) 98276 H Lymph # (Auto) 1800 [place] # (Auto) 1000 H Eos # (Auto) 100 Baso # (Auto) 200 H PT INR APTT D-Dimer Sodium Potassium Chloride Carbon Dioxide BUN Creatinine Estimated GFR BUN/Creatinine Ratio Glucose Lactate Calcium Magnesium 1.9 Total Bilirubin AST ALT Alkaline Phosphatase Total Creatine Kinase 28 L CK-MB (CK-2) TNP CK-MB (CK-2) Rel Index TNP Troponin I 0.019 B-Natriuretic Peptide < 100 Total Protein Albumin Globulin Albumin/Globulin Ratio Procalcitonin 0.17 01/01/19 01/01/19 01/01/19 13:03 13:48 13:48 WBC RBC Hgb Hct MCV MCH MCHC RDW Plt Count Neut % (Auto) Lymph % (Auto) [place] % (Auto) Eos % (Auto) Baso % (Auto) Neut # (Auto) Lymph # (Auto) [place] # (Auto) Eos # (Auto) Baso # (Auto) PT 13.9 H INR 1.2 APTT 28 D-Dimer 6918 H Sodium 138 Potassium 4.4 Chloride 97 L Carbon Dioxide 28 BUN 25 H Creatinine 0.90 Estimated GFR > 60.0 BUN/Creatinine Ratio 27.8 H Glucose 121 H Lactate 1.3 Calcium 10.1 Magnesium Total Bilirubin 1.2 AST 67 H ALT 17 Alkaline Phosphatase 98 Total Creatine Kinase CK-MB (CK-2) CK-MB (CK-2) Rel Index Troponin I B-Natriuretic Peptide Total Protein 7.0 Albumin 3.9 Globulin 3.1 Albumin/Globulin Ratio 1.3 Procalcitonin 01/01/19 01/01/19 01/02/19 14:47 23:59 05:18 WBC 13.8 H RBC 4.01 Hgb 11.7 L Hct 35.8 L MCV 89.1 MCH 29.2 MCHC 32.8 RDW 17.1 H Plt Count 100 L Neut % (Auto) 90.9 H Lymph % (Auto) 5.4 L [place] % (Auto) 3.1 Eos % (Auto) 0.0 L Baso % (Auto) 0.6 Neut # (Auto) 57129 H Lymph # (Auto) 800 L [place] # (Auto) 400 Eos # (Auto) 0 Baso # (Auto) 100 PT INR APTT D-Dimer Sodium Potassium Chloride Carbon Dioxide BUN Creatinine Estimated GFR BUN/Creatinine Ratio Glucose Lactate Cancelled Calcium Magnesium Total Bilirubin AST ALT Alkaline Phosphatase Total Creatine Kinase CK-MB (CK-2) CK-MB (CK-2) Rel Index Troponin I 0.018 B-Natriuretic Peptide 284 H Total Protein Albumin Globulin Albumin/Globulin Ratio Procalcitonin 01/02/19 05:18 WBC RBC Hgb Hct MCV MCH MCHC RDW Plt Count Neut % (Auto) Lymph % (Auto) [place] % (Auto) Eos % (Auto) Baso % (Auto) Neut # (Auto) Lymph # (Auto) [place] # (Auto) Eos # (Auto) Baso # (Auto) PT INR APTT D-Dimer Sodium 136 L Potassium 4.5 Chloride 98 Carbon Dioxide 34 H BUN 20 H Creatinine 0.70 Estimated GFR > 60.0 BUN/Creatinine Ratio 28.6 H Glucose 184 H Lactate Calcium 9.1 Magnesium Total Bilirubin AST ALT Alkaline Phosphatase Total Creatine Kinase CK-MB (CK-2) CK-MB (CK-2) Rel Index Troponin I B-Natriuretic Peptide Total Protein Albumin Globulin Albumin/Globulin Ratio Procalcitonin Assessment & Plan Assessment & Plan narrative: 1. Acute hypoxic respiratory failure secondary to right upper lobe pneumothorax and right pleural effusion. Patient continues to be clinically stable. Blood pressure has been elevated over night, likely sec ondary to pain. Will work on improved pain control today and watch closely. Repeat chest x-ray pending. Will continue oxygen per nasal cannula and titrate to keep her saturations above 88%. Currently on 4 L. Possible need for pleural biopsy to identify cause of pleural effusion, will coordinate with Oncology. 2. Right hilar mass and left adrenal nodule, concern for malignancy. Oncology consult pending. 3. Back pain, cannot rule out metastatic process versus degenerative joint disease verses compression fracture. Pain is uncontrolled, will continue to work on making the patient comfortable today IV morphine. Lumbosacral x-ray pending. Anticipate need for CT abdomen/pelvis to evaluate adjacent structures more fully. Will coordinate this with Oncology. 4. Leukocytosis with left shift, improved, will continue to trend. 5. Thrombocytopenia, worsened, trend likely secondary to hydration and suspect due to acute phase reactant, but need to rule out early DIC. No clinical signs of DIC, but risk factors due to possible malignancy, especially in light of elevated D-dimer at time of presentation. Will check PT and fibrinogen. 6. Left bundle branch block, new. Serial cardiac troponins negative to date x 2. EKG pending. On telemetry. Patient continues to deny chest pain. Will proceed with evaluation of underlying causes with echo and cardiology consult. Holding off on stress test now due to pneumothorax. 7. Elevated D-dimer, new. Please see #6, will also rule out DVT with duplex US. 8. Chronic medical conditions including congestive heart failure, hypertension, hyperlipidemia, peripheral neuropathy, and depression. Hypertension has been uncontrolled, please see #1. Patient will continue on carvedilol 3.125 mg p.o. b.i.d. and pravastatin 40 mg p.o. q.day. 8. DVT prophylaxis, Lovenox. 9. Code: Full Quality VTE Deep Vein Thrombosis/Pulmonary Embolism Present on Admission: No
--- NOTE | 2019-01-02 07:36 | DI.ECHO.S_ITS ---
[facility] +---------+ : : [address] [place] [address] : : : : [id number] : : : : Phone: [phone]+ Echocardiogram Report + + :Name: ASHLEE ARIAS Study Date: 01/02/2019 Height: 63 in : :[facility] Weight: 151 lb : : Gender: Female BSA: 1.7 m2 : :: 1940 Age: 78 yrs BP: 137/69 mmHg: :Reason For Study: ELEVATED D-DIMER, LBBB : :Ordering Physician: Sushant : :Hospitalist Performed By: Alexus Wise : :Referring: NILA BLEDSOE : + + Interpretation Summary Normal sinus rhythm with LBBB. Normal LV size and wall thickness. dyssynchronous contraction and associated cardiomyopathy. EF is estimated at 30-35%. Mild biatrial enlargement. No significant valvular abnormalities. There is a small pericardial effusion and moderate right pleural effusion. No prior echo available for comparison. Procedure: A two-dimensional transthoracic echocardiogram with color flow and Doppler was performed. The study quality was technically adequate. There is no prior echocardiogram noted for this patient. The patient had a bundle branch block rhythm during the exam. The patient was in normal sinus rhythm during the exam. Left Ventricle: The left ventricle is normal in size. There is normal left ventricular wall thickness. There is no ventricular septal defect visualized. The ejection fraction is estimated to be 30-35%. There is a marked dyssynchronous contraction pattern, consistent with a conduction abnormality. Right Ventricle: The right ventricle is normal in size and function. Atria: Both atria are mildly dilated. There is no Doppler evidence for an interatrial shunt. Mitral Valve: The mitral valve is normal in structure and function. There is trace mitral regurgitation. Aortic Valve: The aortic valve is normal in structure and function. No aortic regurgitation is present. Tricuspid Valve: The tricuspid valve leaflets are thin and pliable. There is mild tricuspid regurgitation. The right ventricular systolic pressure is estimated to be at least 65 mmHg based on an estimated right atrial pressure of 15 mm Hg. There is moderate-severe pulmonary hypertension. Pulmonic Valve: The pulmonic valve is not well visualized. There is a trace or physiologic amount of pulmonic regurgitation. Great Vessels: The aortic root is normal size. The ascending aorta is normal in size. The aortic arch is normal in size. The IVC is dilated (diameter is greater than 2.1 cm) and it collapses less than 50% with a sniff. This suggests a high right atrial pressure of 15 mm Hg. Pericardium/ Pleura There is a small pericardial effusion noted. There is a moderately large right-sided pleural effusion. MMode/2D Measurements & Calculations LVIDd: 4.8 cm LVOT diam: 2.1 cm LVIDs: 3.8 cm Ao root diam: 2.7 cm FS: 21.2 % Aortic Jxn: 2.0 cm EPSS: 1.5 cm asc Aorta Diam: 3.1 cm IVSd: 0.72 cm Ao Arch Diam (Prox Trans): 2.6 cm LVPWd: 1.00 cm LV harrison. diameter/BSA (cm/m^2): 2.8 LV sys. diameter/BSA (cm/m^2): 2.2 LA A2 area: 21.0 cm2 RA long axis: 5.0 cm LA A4 area: 22.1 cm2 RA area: 16.5 cm2 LA length (vol): 5.6 cm RA vol: 46.6 ml LA vol: 69.9 ml RA : 27.1 ml/m2 LA vol index: 40.7 ml/m2 IVC diam: 2.6 cm RVD1 (basal): 2.9 cm RVD2 (mid): 2.4 cm TAPSE: 1.9 cm Doppler Measurements & Calculations Ao V2 max: 123.1 cm/sec LVOT Max Simone: 70.6 cm/sec Ao V2 mean: 87.3 cm/sec LV V1 max P.0 mmHg Ao max P.1 mmHg LV V1 VTI: 14.9 cm Ao mean P.4 mmHg SAMIRA(I,D): 2.0 cm2 Ao V2 VTI: 25.2 cm SAMIRA(V,D): 2.0 cm2 sev ratio: 0.59 SAMIRA indexed to BSA (cm^2/m^2): 1.2 MV E max simone: 73.6 cm/sec TR max simone: 353.6 cm/sec MV A max simone: 89.6 cm/sec TR max P.0 mmHg MV E/A: 0.82 PA V2 max: 72.6 cm/sec Med Peak E' Simone: 3.1 cm/sec PA V2 mean: 50.1 cm/sec E/E' med: 23.7 PA mean P.1 mmHg Lat Peak E' Simone: 3.7 cm/sec PA Accel Time: 0.07 sec E/E' lat: 19.7 E/e' average: 21.7 MV dec time: 0.15 sec MV P1/2t: 43.0 msec MV 2t max simone: 73.7 cm/sec SV(LVOT): 50.6 ml MVA(t): 5.1 cm2 Electronically signed by: Sarah Muhammad M.D. on Reading Physician:01/02/2019 05:52 PM
[2019-01-02] MEDS: DEXTROSE 5%-0.45NS W/KCL 20MEQ 1,000 ML 100 MEQ IV ×2 (07:42→19:28)
--- NOTE | 2019-01-02 07:43 | DI.US.S_ITS ---
PROCEDURE: US PERIPH VENOUS LOW EXTREM BI INDICATIONS: ELEVATED D-DIMER TECHNIQUE: Real-time imaging, as well as color and pulse Doppler interrogation, were performed of the deep veins of both legs from the inguinal ligament to the popliteal fossa. COMPARISON: None. FINDINGS: Right: The common femoral, femoral and popliteal veins are normally compressible, and free of intraluminal thrombus. Color and pulse Doppler demonstrate normal phasic intravascular flow. There is normal augmentation response to distal compression maneuver. Left: The common femoral, femoral and popliteal veins are normally compressible, and free of intraluminal thrombus. Color and pulse Doppler demonstrate normal phasic intravascular flow. There is normal augmentation response to distal compression maneuver. IMPRESSION: Negative for deep venous thrombosis of the bilateral lower extremities. Dictated by: Ananth Gold M.D. on 01/02/2019 at 9:03 Approved by: Ananth Gold M.D. on 01/02/2019 at 9:04
[2019-01-02] MEDS: ESCITALOPRAM 10 MG TABLET 20 MG PO (07:46)
[2019-01-02] MEDS: ACETAMINOPHEN 325 MG TABLET 650 MG PO (07:46)
[2019-01-02] MEDS: PANTOPRAZOLE 20 MG TABLET PO (07:47)
[2019-01-02] MEDS: TAMOXIFEN 10 MG TABLET 20 MG PO (07:47)
[2019-01-02] MEDS: CARVEDILOL 3.125 MG TABLET PO ×2 (07:47→20:41)
[2019-01-02 08:45] LABS: INR 1.1 (0.9-1.3); Prothrombin Time 13.3 SECONDS (10.1-12.7)
[2019-01-02 09:01] LABS: Troponin I 0.012 ng/mL (0.01-0.034)
[2019-01-02 09:21] LABS: Fibrinogen 215 mg/dL (211-428)
--- NOTE | 2019-01-02 10:39 | CM.DPNOTE ---
DCP: note: case received. GHAZALA ALLEN Ashwini offered to take on the case after caseload triage review. Is handed over to her now.
--- NOTE | 2019-01-02 11:03 | PC.NURSE ---
Addendum entered by Apurva Jara R.N. 01/02/19 13:46: Back from x-ray, assisted to bathroom to void and then back to bed. Re-connected to IV fluids, O2 at 2L and cont. pulse ox. Medicated with 2 mg IV Morphine for 7/10 low back pain. Denies other needs at this time, hopes to rest until family arrives to visit. Call light in reach, bed alarm on. Addendum entered by Apurva Jara R.N. 01/02/19 13:02: Off floor at this time for x-ray series. Declined pain meds offered just before transport. Taken down in wheelchair on 2L portable O2. Addendum entered by Apurva Jara R.N. 01/02/19 11:58: ECHO complete. BP checked prior to admin of Morphine (for 7/10 pain) was 154/80. After Morphine pain down to 5/10, BP down to 124/76. Addendum entered by Apurva Jara R.N. 01/02/19 11:12: DVT study was done earlier. ECHO being done now. Plan is for x-rays of spine to be done approx 1300 (patient is aware and agreeable). Original Note: Shift summary: Alert and oriented X3. Denies shortness of breath at rest. O2 titrated down from 4 to 2L, patient 96% on 2L at rest w/ cont pulse ox in place. Lungs CTA, diminished bases. Intermittent cough which seems to be exacerbated by talking. Cough is basically nonproductive. Rates back pain 7/10 with slight movement, maybe more with movement. Medicating with PRN IV Morphine, Tylenol, may consider adding Vicodin. She just got up commode with the SAILOR's and it sounds like she mobilized fairly well all things considered. Tele monitoring ongoing, denies chest pain (other than with cough). Able to make needs known and calls appropriately. Light in reach, bed alarm on.
--- NOTE | 2019-01-02 12:39 | CM.IDA ---
Addendum entered by ALEJANDRO Claros 01/03/19 08:46: Unable to return to pt's rm 8.1.19. [place] this morning, 8.2.19, that pt transferred yesterday to [facility] for higher level of care and tissue sampling and likely staging of suspected CA, metastatic disease. BRIDGET Original Note: Initial DCP Assessment Note: Pt is a 78 yo female, resident of [place]. Pt IP as of admission, presents w/ SOB, low back pain, cough. Etiologies include acute hypoxic resp failure sec to rt upper lobe pneumothorax and right pleural effusion, rt lung mass w/oncology consult pending. PCP: Kari Paz/ Dr Schneider (?) Payer: Medicare/[employer] Reviewed chart and spoke w/ MONSE Mixon this morning. There is suspicion of lung CA w/ possible mets, pt will go for an xray this afternoon. Pt concerned about her family and specifically her spouse, whom she cares for. This HEAD PAPER TESTER attempted to introduce role this afternoon, pt on the phone w/her son and explained she would be going to xray soon but was appreciative of the SW visit and hoped this HEAD PAPER TESTER would return later today or tomorrow. Following closely and will return for more thorough assessment, anticipated this afternoon. ALEJANDRO Claros Discharge Planning/Care Management Advanced directive, confirm from FAMILY Start: 01/01/19 18:31 Freq: Q24H Status: Active Protocol: Document 01/01/19 18:31 [place] (Rec: 01/01/19 18:31 [facility] [id number]) Advance Directive, confirm on record Time 18:20 Person contacted Son Russ Copy received No CM Discharge Assessment Start: 01/02/19 12:33 Freq: Status: Active Protocol: Document 01/02/19 12:33 BRIDGET (Rec: 01/02/19 12:39 [facility] [id number]) Discharge Planning Assessment Assigned Physical Therapy Attendant ALEJANDRO Brar DPOA/Assigned Designee Name Thang Castro, spouse Son Russ, contact info? Contact Information [phone] Advance Directives? Yes History Provided By Patient Prior Living Arrangements Apartment/Condo Household Members spouse Independent with ADL's Yes Is patient alert and oriented? 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
--- NOTE | 2019-01-02 19:24 | PM.DS.1 ---
History of Present Illness Chief complaint: LBB Narrative: This 78-year-old female is admitted to the floor after presenting to the ED via EMS transport for worsening lower back pain/spasm in the setting of a worsening cough. Lumbar back pain radiates around her side and has been increasing in intensity for the past 5-6 weeks, sharp. Was seen in urgent care on 12/19/2018 and diagnosed with bronchitis. Prescribed prednisone, doxycycline, and benzonatate with no relief in symptoms. Seen again 1 week later in primary care clinic by CALI Perrin and prescribed a Z-Vicente with benzonatate and again had no improvement in symptoms. She denied fever or allergies. She does have history of congestive heart failure and is a breast cancer survivor, on tamoxifen. Has never had a colonoscopy, FIT test on 02/13/2018 negative. Chest x-ray on 12/25/18 showed prominent pulmonary vasculature and pulmonary edema with some right pleural effusion. She was seen again in primary care clinic by myself on 12/30/2018 4 days after her chest x-ray, diagnosis of bronchitis questioned and workup for heart failure versus pneumonia initiated. Repeat chest xray and labs ordered but not completed. The following day she called to say that her symptoms had worsened at home and by today she felt so much pain in her back that she thought it was the end. 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 Upon arrival in the ED, vital signs were significant for a HR of 103, BP 131/75, T 98.9 and oxygen saturation of 96%, this later fell to 86% and was treated with 4 L of oxygen with good effect. Workup significant for an elevated D-dimer of [address] angiogram for PE. She did have evidence of apical right upper lobe pneumothorax and moderate right-sided pleural effusion. Near complete atelectasis of the right lower lobe was noted. A new right hilar mass with mass effect on the right upper lobe bronchus was seen along with a left adrenal nodule 1.8 x 2.8 cm, query metastatic adrenal nodule. She was noted to have mediastinal lymphadenopathy. Other pertinent labs included an elevated white count of 18.3 with a left shift and low platelets at 119. AST 62. EKG significant for left bundle branch block, no previous study for comparison, troponin negative. Patient administered methylprednisolone 125 mg IM x1 and morphine sulfate 4 mg IV x 1 before being transferred to the floor. Past medical history: 1. History of breast cancer 2. Shoulder bursitis 3. Congestive heart failure 4. Hypertension 5. Hyperlipidemia 6. Peripheral neuropathy 7. Major depression Past surgical history: 1. ORIF, R humerus 2. Lumpectomy, breast Family history: Father from pancreatic cancer in his 90s. Mother with seizure disorder. Brother, [place] at age 31, seizure disorder. 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 Supportive family with children and grandchildren nearby. 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 Discharge Providers Date of admission: 01/01/19 16:20 Discharge Date: 01/02/19 Primary care physician: Richa Schneider MD Consults: 01/01/19 13:31 Consult to Respiratory Therapy Evaluate & Treat Comment: Physician Instructions: Evaluate and treat 01/01/19 19:19 Consult to Discharge Planning Routine Comment: 01/01/19 22:03 Consult to Oncology Routine Comment: Consulting Provider: Leighton Calix Reason for consultation: h/o breast cancer, new R hilar mass with pneumothorax, new L adrenal nodule 01/02/19 07:38 Consult to Cardiology Routine Comment: Consulting Provider: Mary Maya Reason for consultation: Left BBByeny (on-call MD) Discharge provider: Richa Schneider MD Summary Discharge Diagnosis: 1. Acute hypoxic respiratory failure secondary to right upper lobe pneumothorax, right pleural effusion, and complete atelectasis of right upper lobe 2. History of breast cancer with new onset right hilar mass and left adrenal nodule 3. Cardiomyopathy with ejection fraction of 30-35% and pericardial effusion 4. Left bundle branch block, new 5. Back pain, concerning for metastatic lesion with mass effect 6. Elevated D-dimer 7. Thrombocytopenia 8. Leukocytosis with left shift 9. History of congestive heart failure 10. Hypertension 11. Hyperlipidemia 12. Peripheral neuropathy 13. Depression Hospital Course: During patient's hospital course, she was administered 4 L of oxygen per nasal cannula initially but eventually weaned to 2 L. Her back pain continued in moderate to severe intensity and she was treated with morphine with some but not total relief of symptoms. Subsequent workup including echo, duplex ultrasound, follow-up chest x-ray, and labs significant for an ejection fraction of 30-35% with cardiomyopathy and a small pericardial effusion. Chest x-ray showed a subpulmonic right pleural effusion with mass effect causing complete atelectasis of the right upper lobe, bronchoscopy recommended along with further imaging. Lumbosacral x-rays were nonrevealing and MR imaging recommended for further assessment of suspected metastatic lesion. Three sets of cardiac enzymes were negative. CT angiogram and duplex ultrasound notably negative despite high D-dimer. PT trended down from 13.9 to 13.3. INR and fibrinogen within normal limits. Both Cardiology and Oncology were consulted, shared decision was made to transfer patient to [facility] for higher level of care and further workup secondary to suspected metastatic process with need for tissue sampling and hopefully staging. Dr. Mir has kindly agreed to accept care. Status at Discharge Cognitive/behavioral status at discharge: at baseline, oriented Functional status at discharge: wheelchair bound Overall status at discharge: patient is not back to baseline Time Spent with Patient Greater than 30 minutes Exam Vital Signs (past 8 hours): - 01/02/19 11:58 01/02/19 13:35 01/02/19 13:50 Temperature Pulse Rate 76 Respiratory Rate 16 Blood Pressure 124/76 Pulse Oximetry 94 96 01/02/19 15:31 01/02/19 16:30 Temperature 98.3 F Pulse Rate 83 Respiratory Rate 18 Blood Pressure 145/75 H Pulse Oximetry 96 95 Fraction of Inspired Oxygen 28 Oxygen Delivery Method Nasal Cannula Oxygen Flow Rate 2 Narrative Exam Narrative: GENERAL: Alert and oriented, appearing stated age and in no acute distress. HEENT: Head normocephalic/atraumatic. Pupils equal, round, and reactive to light and accomodation. Extraocular muscles intact. Tympanic membranes clear. Nasal mucosa moist, septum midline. Oral mucosa moist, no lesions. Neck soft and supple, no lymphadenopathy. LUNGS: Diminished inspiratory effort throughout, no audible lung sounds over right apex, otherwise clear to auscultation bilaterally, no wheezes rhonchi or rales. CV: Normal S1 and S2 with regular rate and rhythm, no audible murmurs, rubs or gallops. ABDOMEN: Soft, non-tender, non-distended, no organomegaly. Positive bowel sounds. EXTREMITIES: No clubbing, cyanosis, or edema. NEURO: Cranial nerves II through XII grossly intact, no focal deficits. PSYCH: Alert and oriented x 3. SKIN: No concerning lesions. Objective Labs Result Diagrams: 01/02/19 05:18 01/02/19 05:18 Labs: Laboratory Results - last 24 hr 01/01/19 01/02/19 01/02/19 23:59 05:18 05:18 WBC 13.8 H RBC 4.01 Hgb 11.7 L Hct 35.8 L MCV 89.1 MCH 29.2 MCHC 32.8 RDW 17.1 H Plt Count 100 L Neut % (Auto) 90.9 H Lymph % (Auto) 5.4 L [place] % (Auto) 3.1 Eos % (Auto) 0.0 L Baso % (Auto) 0.6 Neut # (Auto) 65228 H Lymph # (Auto) 800 L [place] # (Auto) 400 Eos # (Auto) 0 Baso # (Auto) 100 PT INR Fibrinogen Sodium 136 L Potassium 4.5 Chloride 98 Carbon Dioxide 34 H BUN 20 H Creatinine 0.70 Estimated GFR > 60.0 BUN/Creatinine Ratio 28.6 H Glucose 184 H Calcium 9.1 Troponin I 0.018 B-Natriuretic Peptide 284 H 01/02/19 01/02/19 08:25 08:25 WBC RBC Hgb Hct MCV MCH MCHC RDW Plt Count Neut % (Auto) Lymph % (Auto) [place] % (Auto) Eos % (Auto) Baso % (Auto) Neut # (Auto) Lymph # (Auto) [place] # (Auto) Eos # (Auto) Baso # (Auto) PT 13.3 H INR 1.1 Fibrinogen 215 Sodium Potassium Chloride Carbon Dioxide BUN Creatinine Estimated GFR BUN/Creatinine Ratio Glucose Calcium Troponin I 0.012 B-Natriuretic Peptide Discharge Plan Discharge Plan Patient Disposition: [facility] Transfer to: [facility] Under care of provider: Dr. Mir Discharge Med Rec/Prescriptions Prescriptions: Continued albuterol sulfate [ProAir HFA] 90 mcg/actuation Hfa Aerosol Inhaler 2 puff inhalation Q4H PRN (Reason: shortness of breath/wheezing) RF: 0 naproxen 500 mg Tablet 500 mg PO BID RF: 0 pravastatin 40 mg Tablet 40 mg PO BEDTIME RF: 0 carvedilol 3.125 mg Tablet 3.125 mg PO BID RF: 0 benzonatate 100 mg Capsule 100 mg PO BID PRN (Reason: Cough) RF: 0 tamoxifen 20 mg Tablet 20 mg PO DAILY RF: 0 aspirin 81 mg Tablet,Delayed Release (Dr/Ec) 81 mg PO DAILY RF: 0 naproxen sodium [Aleve] 220 mg Tablet 220 - 440 mg PO DAILY PRN (Reason: pain) RF: 0 gabapentin 300 mg Capsule 600 mg PO TID RF: 0 multivitamin with minerals Tablet 1 tab PO DAILY RF: 0 escitalopram oxalate 20 mg Tablet 20 mg PO DAILY RF: 0 Prilosec OTC 20 mg Tablet,Delayed Release (Dr/Ec) 20 mg PO DAILY RF: 0 hydrocodone-acetaminophen 5-325 mg Tablet 1 tab PO Q4-6H PRN (Reason: Back Pain) RF: 0 Discontinued azithromycin 250 mg Tablet 250 mg PO DAILY RF: 0 Follow up/Referrals: Richa Schneider MD [Non-Staff] - Discharge Orders: Discharge (Order); Ordered 01/02/19 Ordered By: Richa Schneider Discharge Health Status Brief summary of current health status: Guarded Multidrug resistant organism: No MDRO Precautions: [place] Provider Discharge Instructions Diet: Nothing by Mouth Activity: bedrest with bathroom privileges Oxygen: 2-4 L to maintain sats > 88% Discharge Data Attending Provider: Richa Schneider Admit Date/Time: 01/01/19 16:20 Quality VTE Deep Vein Thrombosis/Pulmonary Embolism Present on Admission: No
--- NOTE | 2019-01-02 19:28 | ONC.CONS ---
History of Present Illness - Data of Consult Patient: new to practice Consult date: 01/02/19 Requesting Physician: Richa Schneider MD - Consult Narrative Reason for consult: Right hilar mass with right pleural effusion Narrative: Tia Castro is a 78 year old female. She was diagnosed with left sided stage 1 T1 N0 M0 invasive ductal carcinoma in Jul 2015, status post partial mastectomy with sentinel node biopsy on 08/23/2015. Her primary tumor measured 0.6 cm in greatest diameter, the tumor was NG 5/9, ER posittive, MS positive, Ki 67 at 8.45%, HER2 negative. Patient forego radiation therapy and opted for 5 years of tamoxifen which she started 10/05/2015. She presented with about 6 weeks of progressive worsening lower back pain and dry cough with shortness of breath. The lower back pain has got so worse that nothing could help. She called EMS and was brought to ER. She reports that her appetite has not been great for the past several month. Her weight however has been stable. She denies any lower extremity weakness or pain. She denies any loss of control of bowel or bladder. CTA on 01/01/2019 showed no evidence of PE, but it showed collapse of right upper lobe apical and posterior segment, moderate right-sided pleural effusion with near complete atelectasis of right lower lobe, suggestion of right hilar mass with mass effect on adjacent right upper lobe bronchi, mediastinal lymphadenopathy, mild cardiomegaly with small to moderate pericardial effusion adn left adrenal nodule. Echo today (01/02/2019) showed EF 30-35%, dyssynchronous contraction and associated cardiomyopathy, mild to moderate pericardial effusion. Paraoptometric Dr. Muhammad recommended transfer to higher level of care. CC: Richa Schneider MD - Pain Details Pain Intensity: 4 Pain Scale Used: Numeric (1 - 10) Home Medications and Allergies Home Medications Medication Instructions Recorded Confirmed Type albuterol sulfate [ProAir HFA] 2 puff INHALATION Q4H PRN 01/01/19 01/01/19 History aspirin 81 mg PO DAILY 01/01/19 01/01/19 History azithromycin 250 mg PO DAILY 01/01/19 01/01/19 History benzonatate 100 mg PO BID PRN 01/01/19 01/01/19 History carvedilol 3.125 mg PO BID 01/01/19 01/01/19 History escitalopram oxalate 20 mg PO DAILY 01/01/19 01/01/19 History gabapentin 600 mg PO TID 01/01/19 01/01/19 History hydrocodone-acetaminophen 1 tab PO Q4-6H PRN 01/01/19 01/01/19 History multivitamin with minerals 1 tab PO DAILY 01/01/19 01/01/19 History naproxen 500 mg PO BID 01/01/19 01/01/19 History naproxen sodium [Aleve] 220 - 440 mg PO DAILY PRN 01/01/19 01/01/19 History omeprazole magnesium [Prilosec OTC] 20 mg PO DAILY 01/01/19 01/01/19 History pravastatin 40 mg PO BEDTIME 01/01/19 01/01/19 History tamoxifen 20 mg PO DAILY 01/01/19 01/01/19 History Allergies Allergy/AdvReac Type Severity Reaction Status Date / Time No Known Drug Allergies Allergy Verified 01/01/19 13:52 Medical History - Medical, Surgical, Family History Medical History: Medical History (Updated 01/01/19 @ 17:14 by Lita Heart DO) Dyslipidemia Breast cancer Hypertension Surgical History: Surgical History (Updated 01/01/19 @ 13:36 by Lita Heart DO) H/O lumpectomy - Social History Smoking Status: Former smoker Exam Vital signs: Vital Signs Temp Pulse Resp BP Pulse Ox 01/02/19 16:30 95 01/02/19 15:31 98.3 F 83 18 145/75 H 96 01/02/19 13:50 76 16 96 01/02/19 13:35 94 01/02/19 11:58 124/76 01/02/19 11:02 96 01/02/19 11:00 98.1 F 77 14 154/80 H 94 01/02/19 09:43 97 01/02/19 09:00 94 01/02/19 08:40 88 L 01/02/19 08:30 98 01/02/19 08:26 98 01/02/19 08:01 98 01/02/19 07:00 98.2 F 81 15 151/84 H 99 01/02/19 03:35 98.0 F 90 20 169/89 H 97 01/02/19 01:00 96 01/01/19 23:30 97.9 F 81 19 152/67 H 97 01/01/19 20:45 97 Intake and Output 01/02/19 01/02/19 01/02/19 07:59 15:59 23:59 Intake Total 983.333 / 2183.333 900 / 2183.333 300 / 2183.333 Output Total 375 / 2400 825 / 2400 1200 / 2400 Balance 608.333 / -216.667 75 / -216.667 -900 / -216.667 Intake: IV 983.333 / 983.333 Dextrose 5%-0.45NS W/KCl 20Meq 983.333 / 983.333 1,000 ml @ 100 mls/hr IV CONT SAM Rx#:[id number] Oral 900 / 1200 300 / 1200 Output: Urine 375 / 2400 825 / 2400 1200 / 2400 Other: Percent Meal Consumed 50% 100% Stool Size Small # Bowel Movements 1 Weight 68.8 kg Patient Weight 01/02/19 23:59 Weight 68.8 kg Narrative: Gen: thin, in moderate resp distress, on O2 via NC, pleasant, cooperative, very anxious and nervous Heent: NCAT, EOMI, PERLLA, anicteric Neck: supple, no LAd Lungs: significantly decreased BS on the right; left side normal Card: RRR, Abd: soft, no organomegaly appreciated Ext: no pitting edema noted Neuro: AOx3,nonfocal Results - Labs Laboratory Last Values WBC 13.8 X10^3/uL (4.5-11.0) H 01/02/19 05:18 RBC 4.01 X10^6/uL (4.0-5.2) 01/02/19 05:18 Hgb 11.7 g/dL (12.0-16.0) L 01/02/19 05:18 Hct 35.8 % (36-46) L 01/02/19 05:18 MCV 89.1 fL (80-100) 01/02/19 05:18 MCH 29.2 PG (26-34) 01/02/19 05:18 MCHC 32.8 % (30-36) 01/02/19 05:18 RDW 17.1 % (11.6-14.8) H 01/02/19 05:18 Plt Count 100 X10^3/uL (150-400) L 01/02/19 05:18 Neut % (Auto) 90.9 % (50-75) H 01/02/19 05:18 Lymph % (Auto) 5.4 % (25-40) L 01/02/19 05:18 [place] % (Auto) 3.1 % (3-14) 01/02/19 05:18 Eos % (Auto) 0.0 % (2-4) L 01/02/19 05:18 Baso % (Auto) 0.6 % (0-2) 01/02/19 05:18 Neut # (Auto) 05914 /uL (6400-7154) H 01/02/19 05:18 Lymph # (Auto) 800 /uL (9290-3741) L 01/02/19 05:18 [place] # (Auto) 400 /uL (0-900) 01/02/19 05:18 Eos # (Auto) 0 /uL (0-450) 01/02/19 05:18 Baso # (Auto) 100 /uL (0-100) 01/02/19 05:18 PT 13.3 SECONDS (10.1-12.7) H 01/02/19 08:25 INR 1.1 (0.9-1.3) 01/02/19 08:25 APTT 28 SECONDS (26.4-36.2) 01/01/19 13:48 Fibrinogen 215 mg/dL (211-428) 01/02/19 08:25 D-Dimer 6918 ng/mL (<230) H 01/01/19 13:48 Sodium 136 mmol/L (137-145) L 01/02/19 05:18 Potassium 4.5 mmol/L (3.4-5.1) 01/02/19 05:18 Chloride 98 mmol/L (98-107) 01/02/19 05:18 Carbon Dioxide 34 mmol/L (22-32) H 01/02/19 05:18 BUN 20 mg/dL (7-17) H 01/02/19 05:18 Creatinine 0.70 mg/dL (0.52-1.04) 01/02/19 05:18 Estimated GFR > 60.0 mL/min (>60) 01/02/19 05:18 BUN/Creatinine Ratio 28.6 (6-22) H 01/02/19 05:18 Glucose 184 mg/dL (80-110) H 01/02/19 05:18 Lactate 1.3 mmol/L (0.7-2.1) 01/01/19 13:48 Calcium 9.1 mg/dL (8.4-10.2) 01/02/19 05:18 Magnesium 1.9 mg/dL (1.6-2.3) 01/01/19 13:03 Total Bilirubin 1.2 mg/dL (0.2-1.3) 01/01/19 13:03 AST 67 IU/L (14-36) H 01/01/19 13:03 ALT 17 IU/L (9-52) 01/01/19 13:03 Alkaline Phosphatase 98 U/L (38-126) 01/01/19 13:03 Total Creatine Kinase 28 U/L (30-135) L 01/01/19 13:03 CK-MB (CK-2) TNP 01/01/19 13:03 CK-MB (CK-2) Rel Index TNP 01/01/19 13:03 Troponin I 0.012 ng/mL (0.01-0.034) 01/02/19 08:25 B-Natriuretic Peptide 284 (<100) H 01/02/19 05:18 Total Protein 7.0 g/dL (6.3-8.2) 01/01/19 13:03 Albumin 3.9 g/dL (3.5-5.0) 01/01/19 13:03 Globulin 3.1 g/dL (1.7-4.1) 01/01/19 13:03 Albumin/Globulin Ratio 1.3 (1.0-2.8) 01/01/19 13:03 Procalcitonin 0.17 ng/mL (<0.5) 01/01/19 13:03 Assessment and Plan (1) Lung mass 78 year old female with history of breast cancer T1b N0 M0 ER postive, MS postive, Her 2 negative, node negative, s/p lumpectomy 2015. She did not have adjuvant chemotherapy or radiation therapy, and has been on Tamoxifen. She was admitted for progressive worsening lower back pain, and cough. She was found to have right pleural effusion, questionable right hilar mass, mediastinal lymphadenopathy, and left adrenal gland mass on admission CTA scan as well as cardiomyopathy with low EF on echo today. I agree with transfer of this patient to higher level of care. Clinically, it is highly suspicious for possible recurrent metastatic breast cancer or primary lung cancer with metastasis. She needs tissue diagnosis, which may be obtained either by thoracentesis or bronchoscopy with biopsy. Further management will depend on the tissue diagnosis. In addition, I would recommend complete staging include brain MRI, bone scan and possible PET scan when she is more stable. The complete staging may be carried as an outpatient. Please schedule to see me as an outpatient when she is discharged Thanks for involving me in the care of Ms. Castro.
--- NOTE | 2019-01-02 19:43 | P.DS_ITS ---
History of Present Illness Chief complaint: LBB Narrative: This 78-year-old female is admitted to the floor after presenting to the ED via EMS transport for worsening lower back pain/spasm in the setting of a worsening cough. Lumbar back pain radiates around her side and has been increasing in intensity for the past 5-6 weeks, sharp. Was seen in urgent care on 12/19/2018 and diagnosed with bronchitis. Prescribed prednisone, doxycycl ine, and benzonatate with no relief in symptoms. Seen again 1 week later in primary care clinic by CALI Perrin and prescribed a Z-Vicente with benzonatate and again had no improvement in symptoms. She denied fever or allergies. She does have history of congestive heart failure and is a breast cancer survivor, on tamoxifen. Has never had a colonoscopy, FIT test on 02/13/2018 negative. Chest x-ray on 12/25/18 showed prominent pulmonary vasculature and pulmonary edema with some right pleural effusion. She was seen again in primary care clinic by myself on 12/30/2018 4 days after her chest x- ray, diagnosis of bronchitis questioned and workup for heart failure versus pneumonia initiated. Repeat chest xray and labs ordered but not completed. The following day she called to say that her symptoms had worsened at home and by today she felt so much pain in her back that she thought it was the end. 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 Upon arrival in the ED, vital signs were significant for a HR of 103, BP 131/75, T 98.9 and oxygen saturation of 96%, this later fell to 86% and was treated with 4 L of oxygen with good effect. Workup significant for an elevated D-dimer of [address] angiogram for PE. She did have evidence of apical right upper lobe pneumothorax and moderate right-sided pleural effusion. Near complete atelectasis of the right lower lobe was noted. A new right hilar mass with mass effect on the right upper lobe bronchus was seen along with a left adrenal nodule 1.8 x 2.8 cm, query metastatic adrenal nodule. She was noted to have mediastinal lymphadenopathy. Other pertinent labs included an elevated white count of 18.3 with a left shift and low platelets at 119. AST 62. EKG significant for left bundle branch block, no previous study for comparison, troponin negative. Patient administered methylprednisolone 125 mg IM x1 and morphine sulfate 4 mg IV x 1 before being transferred to the floor. Past medical history: 1. History of breast cancer 2. Shoulder bursitis 3. Congestive heart failure 4. Hypertension 5. Hyperlipidemia 6. Peripheral neuropathy 7. Major depression Past surgical history: 1. ORIF, R humerus 2. Lumpectomy, breast Family history: Father from pancreatic cancer in his 90s. Mother with seizure disorder. Brother, MS at age 31, seizure disorder. 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 Supportive family with children and grandchildren nearby. 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 Discharge Providers Date of admission: 01/01/19 16:20 Discharge Date: 01/02/19 Primary care physician: Richa Schneider MD Consults: 01/01/19 13:31 Consult to Respiratory Therapy Evaluate & Treat Comment: Physician Instructions: Evaluate and treat 01/01/19 19:19 Consult to Discharge Planning Routine Comment: 01/01/19 22:03 Consult to Oncology Routine Comment: Consulting Provider: Leighton Calix Reason for consultation: h/o breast cancer, new R hilar mass with pneumothorax, new L adrenal nodule 01/02/19 07:38 Consult to Cardiology Routine Comment: Consulting Provider: Mary Maya Reason for consultation: yeny Sauer (on-call MD) Discharge provider: Richa Schneider MD Summary Discharge Diagnosis: 1. Acute hypoxic respiratory failure secondary to right upper lobe pneumothorax, right pleural effusion, and complete atelectasis of right upper lobe 2. History of breast cancer with new onset right hilar mass and left adrenal nodule 3. Cardiomyopathy with ejection fraction of 30-35% and pericardial effusion 4. Left bundle branch block, new 5. Back pain, concerning for metastatic lesion with mass effect 6. Elevated D-dimer 7. Thrombocytopenia 8. Leukocytosis with left shift 9. History of congestive heart failure 10. Hypertension 11. Hyperlipidemia 12. Peripheral neuropathy 13. Depression Hospital Course: During patient's hospital course, she was administered 4 L of oxygen per nasal cannula initially but eventually weaned to 2 L. Her back pain continued in moderate to severe intensity and she was treated with morphine with some but not total relief of symptoms. Subsequent workup including echo, duplex ultrasound, follow-up chest x-ray, and labs significant for an ejection fraction of 30-35% with cardiomyopathy and a small pericardial effusion. Chest x-ray showed a subpulmonic right pleural effusion with mass effect causing complete atelectasis of the right upper lobe, bronchoscopy recommended along with further imaging. Lumbosacral x-rays were nonrevealing and MR imaging recommended for further assessment of suspected metastatic lesion. Three sets of cardiac enz ymes were negative. CT angiogram and duplex ultrasound notably negative despite high D-dimer. PT trended down from 13.9 to 13.3. INR and fibrinogen within normal limits. Both Cardiology and Oncology were consulted, shared decision was made to transfer patient to [facility] for higher level of care and further workup secondary to suspected metastatic process with need for tissue sampling a nd hopefully staging. Dr. Mir has kindly agreed to accept care. Status at Discharge Cognitive/behavioral status at discharge: at baseline, oriented Functional status at discharge: wheelchair bound Overall status at discharge: patient is not back to baseline Time Spent with Patient Greater than 30 minutes Exam Vital Signs (past 8 hours): - 01/02/19 11:58 01/02/19 13:35 01/02/19 13:50 Temperature Pulse Rate 76 Respiratory Rate 16 Blood Pressure 124/76 Pulse Oximetry 94 96 01/02/19 15:31 01/02/19 16:30 Temperature 98.3 F Pulse Rate 83 Respiratory Rate 18 Blood Pressure 145/75 H Pulse Oximetry 96 95 Fraction of Inspired Oxygen 28 Oxygen Delivery Method Nasal Cannula Oxygen Flow Rate 2 Narrative Exam Narrative: GENERAL: Alert and oriented, appearing stated age and in no acute distress. HEENT: Head normocephalic/atraumatic. Pupils equal, round, and reactive to light and accomodation. Extraocular muscles intact. Tympanic membranes clear. Nasal mucosa moist, septum midline. Oral mucosa moist, no lesions. Neck soft and supple, no lymphadenopathy. LUNGS: Diminished inspiratory effort throughout, no audible lung sounds over right apex, otherwise clear to auscultation bilaterally, no wheezes rhonchi or rales. CV: Normal S1 and S2 with regular rate and rhythm, no audible murmurs, rubs or gallops. ABDOMEN: Soft, non-tender, non-distended, no organomegaly. Positive bowel sounds. EXTREMITIES: No clubbing, cyanosis, or edema. NEURO: Cranial nerves II through XII grossly intact, no focal deficits. PSYCH: Alert and oriented x 3. SKIN: No concerning lesions. Objective Labs Result Diagrams: 01/02/19 05:18 01/02/19 05:18 Labs: Laboratory Results - last 24 hr 01/01/19 01/02/19 01/02/19 23:59 05:18 05:18 WBC 13.8 H RBC 4.01 Hgb 11.7 L Hct 35.8 L MCV 89.1 MCH 29.2 MCHC 32.8 RDW 17.1 H Plt Count 100 L Neut % (Auto) 90.9 H Lymph % (Auto) 5.4 L [place] % (Auto) 3.1 Eos % (Auto) 0.0 L Baso % (Auto) 0.6 Neut # (Auto) 94470 H Lymph # (Auto) 800 L [place] # (Auto) 400 Eos # (Auto) 0 Baso # (Auto) 100 PT INR Fibrinogen Sodium 136 L Potassium 4.5 Chloride 98 Carbon Dioxide 34 H BUN 20 H Creatinine 0.70 Estimated GFR > 60.0 BUN/Creatinine Ratio 28.6 H Glucose 184 H Calcium 9.1 Troponin I 0.018 B-Natriuretic Peptide 284 H 01/02/19 01/02/19 08:25 08:25 WBC RBC Hgb Hct MCV MCH MCHC RDW Plt Count Neut % (Auto) Lymph % (Auto) [place] % (Auto) Eos % (Auto) Baso % (Auto) Neut # (Auto) Lymph # (Auto) [place] # (Auto) Eos # (Auto) Baso # (Auto) PT 13.3 H INR 1.1 Fibrinogen 215 Sodium Potassium Chloride Carbon Dioxide BUN Creatinine Estimated GFR BUN/Creatinine Ratio Glucose Calcium Troponin I 0.012 B-Natriuretic Peptide Discharge Plan Discharge Plan Patient Disposition: [facility] Transfer to: Under care of provider: Dr. Mir Discharge Med Rec/Prescriptions Prescriptions: Continued albuterol sulfate [ProAir HFA] 90 mcg/actuation Hfa Aerosol Inhaler 2 puff inhalation Q4H PRN (Reason: shortness of breath/wheezing) RF: 0 naproxen 500 mg Tablet 500 mg PO BID RF: 0 pravastatin 40 mg Tablet 40 mg PO BEDTIME RF: 0 carvedilol 3.125 mg Tablet 3.125 mg PO BID RF: 0 benzonatate 100 mg Capsule 100 mg PO BID PRN (Reason: Cough) RF: 0 tamoxifen 20 mg Tablet 20 mg PO DAILY RF: 0 aspirin 81 mg Tablet,Delayed Release (Dr/Ec) 81 mg PO DAILY RF: 0 naproxen sodium [Aleve] 220 mg Tablet 220 - 440 mg PO DAILY PRN (Reason: pain) RF: 0 gabapentin 300 mg Capsule 600 mg PO TID RF: 0 multivitamin with minerals Tablet 1 tab PO DAILY RF: 0 escitalopram oxalate 20 mg Tablet 20 mg PO DAILY RF: 0 Prilosec OTC 20 mg Tablet,Delayed Release (Dr/Ec) 20 mg PO DAILY RF: 0 hydrocodone-acetaminophen 5-325 mg Tablet 1 tab PO Q4-6H PRN (Reason: Back Pain) RF: 0 Discontinued azithromycin 250 mg Tablet 250 mg PO DAILY RF: 0 Follow up/Referrals: Richa Schneidre MD [Non-Staff] - Discharge Orders: Discharge (Order); Ordered 01/02/19 Ordered By: Richa Schneider Discharge Health Status Brief summary of current health status: Guarded Multidrug resistant organism: No MDRO Precautions: [place] Provider Discharge Instructions Diet: Nothing by Mouth Activity: bedrest with bathroom privileges Oxygen: 2-4 L to maintain sats > 88% Discharge Data Attending Provider: Richa Schneider Admit Date/Time: 01/01/19 16:20 Quality VTE Deep Vein Thrombosis/Pulmonary Embolism Present on Admission: No
--- NOTE | 2019-01-02 20:33 | PC.NURSE ---
Addendum entered by Abraham Billy R.N. 01/02/19 22:29: report called to accepting nurse Kane at [facility]. Patient left with transport team and report given to transportation lead. Patient left with belonging in bag and on stretcher. Left in stable condition. Original Note: patient is A&O x4 but often can be forgetful about plans and medications. 2100 Medications were given prior to transport. Patient's personal meds from pharm. where received and given to patient for transport. Tele removed, IV left in place for transport to [facility]. Patient req. pain medication prior to transport.
[2019-01-02] MEDS: ENOXAPARIN 40 MG/0.4 ML SYRINGE SUBCUT (20:41)
[2019-01-02] MEDS: PRAVASTATIN 20 MG TABLET 40 MG PO (20:42)
== END 2019-01-02 21:30 | disposition short-term general hospital (02) | DRG 189 ==
LOC: ED 14:13 → AC 17:14
PROVIDERS: Admitting Provider Student in an Organized Health Care Education/Training Program; Emergency Provider Emergency Medicine; Visit Provider Student in an Organized Health Care Education/Training Program
DX: J96.01 Acute respiratory failure with hypoxia (principal); J93.9 Pneumothorax, unspecified; J98.11 Atelectasis; J90 Pleural effusion, not elsewhere classified; C79.51 Secondary malignant neoplasm of bone; I31.3 Pericardial effusion (noninflammatory); I42.9 Cardiomyopathy, unspecified; D69.59 Other secondary thrombocytopenia; I44.7 Left bundle-branch block, unspecified; M54.9 Dorsalgia, unspecified; C50.912 Malignant neoplasm of unspecified site of left female breast; R91.8 Other nonspecific abnormal finding of lung field; E78.5 Hyperlipidemia, unspecified; I10 Essential (primary) hypertension; E27.9 Disorder of adrenal gland, unspecified; R00.0 Tachycardia, unspecified; Z87.891 Personal history of nicotine dependence
CPT/HCPCS: 36415; 71045; 71046; 71275; 72100; 72220; 80048; 80053; 82550; 83605; 83735; 83880; 84145; 84484; 85025; 85379; 85384; 85610; 85730; 87040; 93005; 93306; 93970; 94762; 96374; 96375; 99283; 99285; J1650; J2270; J2930; Q9967